=== PATIENT | male | born 1965 | race Two or more races ===

== ENCOUNTER 2020-11-05 10:37 | Emergency (ER) | payer MEDICARE, MEDICAID, SELFPAY ==
--- NOTE | 2020-11-05 | ECG_ITS ---
Test Reason : CHEST PAIN Blood Pressure : / mmHG Vent. Rate : 071 BPM Atrial Rate : 071 BPM P-R Int : 136 ms QRS Dur : 082 ms QT Int : 368 ms P-R-T Axes : 009 032 057 degrees QTc Int : 399 ms Normal sinus rhythm Normal ECG When compared with ECG of 10-SEP-2015 13:24, ST less elevated in Inferior leads ST no longer depressed in Lateral leads Referred By: Generic ED Physician Electronically Signed By:KIMBERLY BARILLAS MD
[2020-11-05 10:43] VITALS: BP 172/95; PULSE 90; RESP 19; TEMP 36.6; O2SAT 99; BMI 25.8
--- NOTE | 2020-11-05 11:10 | ED_ITS ---
HPI - Chest Pain General Chief Complaint: Chest Pain Stated Complaint: chest pain Time Seen by Provider: 11/05/20 11:10 Source: patient Mode of arrival: ambulatory Limitations: no limitations History of Present Illness HPI narrative: chest pain 45 minutes, feels like his prior NM complaint: chest pain Pertinent past history: coronary artery disease Onset (ago): minute(s) Timing of current episode: constant Pain location: substernal Pain radiation: left arm Severity: moderate Quality: tightness and heaviness Exacerbating factors: nothing Risk Factors Coronary artery disease risk factors: hyperlipidemia, hypertension and family hi story of CAD before age 50 Related Data Allergies Allergy/AdvReac Type Severity Reaction Status Date / Time No Known Allergies Allergy Unverified 05/29/20 15:36 [No Known Allergies*] Review of Systems Constitutional: Constitutional: Reports no additional constitutional complaints Eyes: Eyes: Reports no additional eye complaints ENT: Denies dizziness Cardiovascular: Cardiovascular: Reports no additional cardiovascular complaints Respiratory: Respiratory: Reports as per HPI Gastrointestinal: Gastrointestinal: Reports no additional gastrointestinal complaints Musculoskeletal: Musculoskeletal: Reports no additional musculoskeletal complaints Integumentary/Breasts: Skin/Breast: Denies rash Neurologic: Reports system reviewed and no additional complaints, except as documented, Denies dizziness and Denies Sensory deficit (Neuro) Psychiatric: Psychiatric: Denies anxiety PMFSH Past Medical History Medical History Arthritis HTN (hypertension) Myocardial infarction Surgical History H/O heart artery stent Social History Social History Alcohol intake: never Smoking Status: Never smoker Use of substances other than those prescribed or required for medical reasons: No Physical Exam Vital Signs: Vital Signs: Last Vital Signs Temp 98 F 11/05/20 10:43 Pulse 76 11/05/20 11:21 Resp 17 11/05/20 11:21 BP 166/105 H 11/05/20 11:21 Pulse Ox 100 11/05/20 11:21 Body Mass Index 25.8 Const: General: healthy appearing Nutritional Appearance: average body habitus Orientation/consciousness: oriented to person and patient oriented x3 Limitations: no limitations HENMT: Head: Yes normal to inspection Ears: external ears normal General nose exam: Normal external nose present Mouth: Normal oral and palatal mucosa present and oropharynx normal Throat: Yes posterior oropharynx normal Eyes: General: appearance normal, both eyes and all related structures Neck: Other: supple Neck: Yes normal visual inspection Chest: Chest palpation & inspection: normal inspection of the chest Resp: Auscultation: clear to auscultation bilaterally Cardio: Jugular venous distension: no JVD Rate: regular rate Rhythm: regular rhythm Heart sounds: S1 normal heart sound present and S2 normal heart sound present GI: Inspection: Yes normal to inspection Palpation (GI): Soft to palpation, nontender and No hepatosplenomegaly present Auscultation: normal bowel sounds : General: Yes no CVA tenderness Back/Spine/Pelvis: Back: no CVA tenderness Skin: General skin exam: no rashes or lesions noted Neuro: General: oriented to person and patient oriented x3 Cranial nerves: Yes CN's II-XII intact bilaterally Motor exam (neuro): 5/5 motor strength present throughout Sensory Exam: No Sensory deficit (Neuro) Extrem: General: Yes normal to inspection Psych: Appearance: grossly normal Course Course Course Narrative: accepted by Dr. Aquino [facility] - Chest Pain Differential Diagnosis Differential diagnosis: Likely st elevation myocardial infarction and chest pain Lab Data Result diagrams: 11/05/20 11:20 11/05/20 11:20 Labs: Lab Results 11/05/20 Range/Units 11:20 WBC 5.5 (4.8-10.8) X10*3/uL RBC 5.85 H (4.60-5.80) X10*6/uL Hgb 16.8 (14.0-18.0) g/dl Hct 51.9 (42-52) % MCV 88.7 (80-98) fL MCH 28.7 (27.0-33.0) pg MCHC 32.4 (31.0-36.0) g/dl RDW 12.8 (11.0-16.0) % Plt Count 157 L (160-400) X10*3/uL MPV 11.7 (9.4-12.4) fL Immature Gran % (Auto) 0.2 (0.0-0.4) % Neut % (Auto) 58.6 (45-73) % Lymph % (Auto) 31.1 (20-40) % Cass % (Auto) 6.6 (2-11) % Eos % (Auto) 3.3 (0-4) % Baso % (Auto) 0.2 (0-2) % Lymph # (Auto) 1.7 (1.2-4.9) X10*3/uL Cass # (Auto) 0.4 (0.1-1.2) X10*3/uL Eos # (Auto) 0.2 (0.0-0.4) X10*3/uL Baso # (Auto) 0.0 (0.0-0.2) X10*3/uL Abs Immat Gran (auto) 0.01 (0.00-0.03) X10*3/uL Absolute Neuts (auto) 3.2 (2.0-8.3) X10*3/uL Absolute Nucleated RBC 0.000 (0.0-0.012) X10*3/uL Nucleated RBC % (auto) 0.0 (0.0-0.2) /100WBC Critical Care Time Critical Care Time Attestation: I spent 30 minutes of critical care, with interventions, assessments, speaking to patient, consultants, and family. Discharge Plan Discharge Clinical Impression: Acute NM inferior lateral first episode care Patient Disposition: Xfer Acute [facility] Transfer Details: acute NM
[2020-11-05 11:17] VITALS: PULSE 83
--- NOTE | 2020-11-05 11:17 | ECG_ITS ---
Test Reason : REPEAT Blood Pressure : / mmHG Vent. Rate : 070 BPM Atrial Rate : 070 BPM P-R Int : 136 ms QRS Dur : 082 ms QT Int : 358 ms P-R-T Axes : 044 036 061 degrees QTc Int : 386 ms Normal sinus rhythm Inferior infarct , possibly acute ACUTE DE / STEMI Consider right ventricular involvement in acute inferior infarct Abnormal ECG When compared with ECG of 05-NOV-2020 10:43, No significant change was found Referred By: Valentin Card Electronically Signed By:KIMBERLY BARILLAS MD
[2020-11-05 11:21] VITALS: BP 166/105; PULSE 76; RESP 17; O2SAT 100
[2020-11-05] MEDS: Aspirin Enteric Coated 325 MG TABLET.DR PO (11:24)
[2020-11-05 11:25] LABS: MANUAL DIFF FLAG NO
[2020-11-05 11:27] LABS: Basophils Percent Auto 0.2 % (0-2); Eosinophils Absolute Auto 0.2 X10*3/uL (0.0-0.4); Eosinophils Percent Auto 3.3 % (0-4); Hematocrit 51.9 % (42-52); Hemoglobin 16.8 g/dl (14.0-18.0); Imm Gran Abs Auto 0.01 X10*3/uL (0.00-0.03); Imm Gran Pct Auto 0.2 % (0.0-0.4); Lymphocytes Absolute Auto 1.7 X10*3/uL (1.2-4.9); Lymphocytes Percent Auto 31.1 % (20-40); Mean Corpuscular HGB Conc 32.4 g/dl (31.0-36.0); Mean Corpuscular Hemoglobin 28.7 pg (27.0-33.0); Mean Corpuscular Volume 88.7 fL (80-98); Mean Platelet Volume 11.7 fL (9.4-12.4); Monocytes Absolute Auto 0.4 X10*3/uL (0.1-1.2); Monocytes Percent Auto 6.6 % (2-11); Neutrophils Absolute Auto 3.2 X10*3/uL (2.0-8.3); Neutrophils Percent Auto 58.6 % (45-73); Platelet Count 157 X10*3/uL (160-400); Red Blood Count 5.85 X10*6/uL (4.60-5.80); Red Cell Distribution Width 12.8 % (11.0-16.0); White Blood Count 5.5 X10*3/uL (4.8-10.8)
[2020-11-05] MEDS: Ticagrelor 90 MG TABLET 180 MG PO (11:29)
[2020-11-05] MEDS: Heparin Sodium,Porcine 5,000 UNIT/ML VIAL 5000 UNIT IVPUSH (11:30)
--- NOTE | 2020-11-05 11:30 | PC.NURSE ---
report given to ems, pt aware of plan of care [place] [facility].
--- NOTE | 2020-11-05 11:35 | PC.NURSE ---
nurse to nurse given to dashawn ([phone]) [facility]
[2020-11-05 11:53] LABS: Anion Gap 12 (12-20); Blood Urea Nitrogen 18 mg/dL (9-16); Calcium 9.5 mg/dL (8.4-10.2); Carbon Dioxide 31 mmol/L (22-29); Chloride 104 mmol/L (96-108); Creatinine Clr Calc Pharmacy 70.7; Estimated Glomerular Filt Rate > 60; Glucose Random 146 mg/dL (60-115); Potassium 4.8 mmol/L (3.3-5.1); Sodium 142 mmol/L (135-145)
[2020-11-05 12:02] LABS: COVID-19 Test Negative (Negative); IDNOW Serial# 9DD0AD1C
[2020-11-05 12:14] LABS: Troponin-I High Sensitivity 43.7 ng/L (<3.5-35.0)
--- NOTE | 2020-11-05 12:32 | PC.NURSE ---
this rn [place] [facility] [place] [facility] ([phone]) spoke with varghese, results were given for tyler Tamez
== END 2020-11-05 11:30 | disposition short-term general hospital (02) ==
LOC: HO.ED 11:32
PROVIDERS: Emergency Provider Emergency Medicine
DX: I21.19 ST elevation (STEMI) myocardial infarction involving other coronary artery of inferior wall (principal); Z20.822 Contact with and (suspected) exposure to COVID-19; I10 Essential (primary) hypertension
CPT/HCPCS: 36415; 80048; 84484; 85025; 87635; 93005; 96372; 96374; 99285; 99291

== ENCOUNTER 2021-10-29 11:12 | Inpatient (IN) | payer MEDICARE, MEDICAID, SELFPAY ==
[2021-10-29] VITALS (7 sets, daily range): BP systolic 134–163; BP diastolic 73–104; PULSE 47–73; RESP 14–19; TEMP 36.4–36.7; O2SAT 97–99; BMI 25.3
--- NOTE | ~2021-10-29 | XR_ITS ---
EXAMINATION: XR CHEST CLINICAL INFORMATION: Chest pain COMPARISON: None TECHNIQUE: AP portable view of the chest was obtained. FINDINGS: No significant abnormality is noted involving the heart, lungs, mediastinum, bony thorax or soft tissues. XR/XR chest 1V IMPRESSION: No acute disease.
--- NOTE | 2021-10-29 11:14 | ECG_ITS ---
Test Reason : CHEST PAIN Blood Pressure : / mmHG Vent. Rate : 064 BPM Atrial Rate : 064 BPM P-R Int : 134 ms QRS Dur : 082 ms QT Int : 374 ms P-R-T Axes : 030 034 043 degrees QTc Int : 385 ms Normal sinus rhythm Normal ECG When compared with ECG of 05-NOV-2020 11:14, ST no longer elevated in Inferior leads Referred By: Generic ED Physician Electronically Signed By:KIMBERLY BARILLAS MD
--- NOTE | 2021-10-29 11:39 | ECG_ITS ---
Test Reason : chest pain Blood Pressure : / mmHG Vent. Rate : 063 BPM Atrial Rate : 063 BPM P-R Int : 128 ms QRS Dur : 086 ms QT Int : 372 ms P-R-T Axes : 047 024 016 degrees QTc Int : 380 ms Normal sinus rhythm Normal ECG When compared with ECG of 29-OCT-2021 11:12, No significant change was found Referred By: Reilly Goldsmith Electronically Signed By:KIMBERLY BARILLAS MD
[2021-10-29] MEDS: Aspirin 81 MG TAB.CHEW 324 MG PO (11:52)
[2021-10-29 12:05] LABS: MANUAL DIFF FLAG NO
[2021-10-29 12:07] LABS: Basophils Percent Auto 0.2 % (0-2); Eosinophils Absolute Auto 0.2 X10*3/uL (0.0-0.4); Eosinophils Percent Auto 2.7 % (0-4); Hemoglobin 15.2 g/dl (14.0-18.0); Imm Gran Abs Auto 0.03 X10*3/uL (0.00-0.03); Imm Gran Pct Auto 0.5 % (0.0-0.4); Lymphocytes Percent Auto 16.2 % (20-40); Mean Corpuscular Hemoglobin 28.9 pg (27.0-33.0); Mean Corpuscular Volume 87.5 fL (80.0-98.0); Mean Platelet Volume 11.5 fL (9.4-12.4); Monocytes Absolute Auto 0.4 X10*3/uL (0.1-1.2); Monocytes Percent Auto 6.1 % (2-11); Neutrophils Absolute Auto 4.8 x10*3/uL (2.0-8.3); Neutrophils Percent Auto 74.3 % (45-73); Platelet Count 158 X10*3/uL (160-400); Red Blood Count 5.26 X10*6/uL (4.60-5.80); Red Cell Distribution Width 12.9 % (11.0-16.0); White Blood Count 6.4 X10*3/uL (4.8-10.8)
--- NOTE | 2021-10-29 12:07 | ED.CHESTPAIN ---
HPI - Chest Pain General Chief Complaint: Chest Pain Stated Complaint: chest pain Time Seen by Provider: 10/29/21 11:19 Source: patient Mode of arrival: ambulatory Limitations: language barrier ( patient's 1st language is Tajik, he does speak Uzbek, paraprofessional interpreter was used) History of Present Illness HPI narrative: 55-year-old male who presents emergency department for evaluation of head, neck, left shoulder and chest pain. 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 He states that he was doing this work for approximately 45 minutes. At 11:00, he developed a pain behind his left posterior head which radiated to his left neck and left shoulder. He then developed left-sided chest pain. He states that the pain feels like a pressure-like pain. The pain was constant. The pain was 7/10 at its worst. He states that the pain feels like his heart attack pain. He denied lightheadedness, dizziness, diaphoresis, nausea or vomiting. The patient states he has had 2 myocardial infarctions in the past. His 1st heart attack was 2 years ago and His 2nd myocardial infarction was 1 year prior. He was presented to [facility] on 11/05/2020, he had an inferior wall TN , and hewas transferred to [facility] . He states he got a stent. He has not had chest pain since is last myocardial infarction MD complaint: chest pain Pertinent past history: coronary artery disease, prior TN ( 2 years prior, 1 year prior) and [employer] ( with stent) Onset (ago): hour(s) (1) Timing of current episode: constant Prior episodes: Yes Onset: during exertion Pain location: left chest ( anterior) Pain radiation: left arm and neck ( left) Severity: severe Pain scale (0-10): 7 Quality: tightness and heaviness ( pressure) Relieving factors: nothing Exacerbating factors: nothing Context: recent illness Associated symptoms: other ( weakness) Treatment prior to arrival: aspirin ( 81 mg) and other ( Tylenol) Risk Factors Coronary artery disease risk factors: hypertension ( previous TN x2) and cocaine use Thoracic aortic dissection risk factors: longstanding hypertension Related Data Home Medications Medication Instructions Recorded Confirmed aspirin 81 mg tablet,delayed 1 tab PO DAILY 10/29/21 release atorvastatin 80 mg tablet 1 tab PO DAILY 10/29/21 metoprolol succinate 25 mg 1 tab PO DAILY 10/29/21 tablet,extended release 24 hr ticagrelor 90 mg tablet (Brilinta) 1 tab PO BID 10/29/21 Allergies Allergy/AdvReac Type Severity Reaction Status Date / Time No Known Allergies Allergy Unverified 05/29/20 15:36 [No Known Allergies*] Review of Systems Review of Systems: Yes all other systems are reviewed and are negative [facility] Past Medical History [facility] Narrative: Past medical history: Myocardial infarction 2 years ago and 6 months prior, 6 months prior he was here in the emergency department had inferior wall TN with ST segment depression to 3 and half with hyperacute T-waves in the anterior lateral leads. Social history: He denies tobacco, alcohol and drug use. Medical History Arthritis HTN (hypertension) Myocardial infarction Surgical History H/O heart artery stent Social History Social History Alcohol intake: current Alcohol intake frequency: a few times a month Patient Tobacco Use Status: Never used Tobacco Use of substances other than those prescribed or required for medical reasons: No Advance Directives: No Advance Directives Information Provided: Yes Physical Exam Vital Signs: Vital Signs: Last Vital Signs Temp 98.1 F 10/29/21 15:02 Pulse 48 L 10/29/21 15:02 Resp 14 10/29/21 15:02 BP 134/73 10/29/21 15:02 Pulse Ox 99 10/29/21 15:02 BMI result Body Mass Index 25.3 Const: General: cooperative and no acute distress Orientation/consciousness: oriented to person and oriented to place Limitations: no limitations HENMT: Head: Yes normal to inspection, Yes normocephalic and Yes atraumatic Ears: external ears normal General nose exam: Normal external nose present Face and sinus: Yes normal facial exam Mouth: Normal oral and palatal mucosa present Throat: Yes posterior oropharynx normal Eyes: General: appearance normal, both eyes and all related structures Pupils: Equal, round and reactive pupils present Neck: Neck: Yes normal visual inspection, Yes no lymphadenopathy, Yes trachea midline and Yes supple Chest: Chest palpation & inspection: normal inspection of the chest and normal palpation of entire chest wall Resp: Effort & Inspection: normal respiratory effort and able to speak in complete sentences Auscultation: clear to auscultation bilaterally Cardio: Rate: regular rate Rhythm: regular rhythm Heart sounds: S1 normal heart sound present, S2 normal heart sound present and no murmurs GI: Inspection: Yes normal to inspection Palpation (GI): Soft to palpation, nontender and no guarding Auscultation: normal bowel sounds : General: Yes no CVA tenderness Back/Spine/Pelvis: Back: no CVA tenderness Skin: General skin exam: no rashes or lesions noted Neuro: General: oriented to person and oriented to place Cranial nerves: Yes CN's II-XII intact bilaterally and Yes Equal, round and reactive pupils present Cognition (Neuro): normal cognition Motor exam (neuro): 5/5 motor strength present throughout Extrem: General: Yes normal to inspection Psych: Appearance: grossly normal Speech and movement: Normal speech and movement present Affect: normal affect Attitude: cooperative Thought process: Normal thought process present Thought content: Normal thought content present Course Course Course Narrative: 55-year-old man with history of hypertension and myocardial infarction x2 with the last myocardial infarction on 11/05/2020 ( inferior wall TN seen here then sent to [facility] for cardiac catheterization and stenting) who presents emergency department evaluation chest pain, left-sided head and neck pain that started approximately 1 hour prior to coming to emergency department while 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 Patient states that his pain is similar to his myocardial infarction pain in the past. Initial EKG did reveal peaked T-waves V2 through V3, repeat EKG shows similar peaked T-waves, there was no ST segment elevation or depression. I did order a cardiac workup on the patient include CBC, CMP, PT/ INR, PTT, troponin and chest x-ray. Patient was ordered to get aspirin 324 mg orally. 1723: Laboratory evaluation: CBC was normal. PTT was normal. CMP revealed an elevated BUN of 22 and elevated glucose of 133. First troponin at 1158 was 15.2. Repeat troponin at 15:53 was 532. Repeat EKGs revealed no ST segment elevation or depression, last EKG done at 14:01 reveals sinus bradycardia with a rate of 47. The patient's presentation is consistent with an NSTEMI. I did discuss the patient's presentation and lab findings with the covering senior designer/art director, Dr. Melgar. he recommended admission for NSTEMI, treatment with aspirin, heparin atorvastatin and continuing the patient's Brilinta. Patient also takes metoprolol and that should be continued as well. I did discuss the patient's presentation with the covering hospitalist as well the patient will be admitted to the intermediate care unit for further management of his NSTEMI. MDM - Chest Pain Lab Data Result diagrams: 10/29/21 11:58 10/29/21 11:58 Labs: Lab Results 10/29/21 10/29/21 10/29/21 Range/Units 11:58 11:58 11:58 WBC 6.4 (4.8-10.8) X10*3/uL RBC 5.26 (4.60-5.80) X10*6/uL Hgb 15.2 (14.0-18.0) g/dl Hct 46.0 (42.0-52.0) % MCV 87.5 (80.0-98.0) fL MCH 28.9 (27.0-33.0) pg MCHC 33.0 (31.0-36.0) g/dl RDW 12.9 (11.0-16.0) % Plt Count 158 L (160-400) X10*3/uL MPV 11.5 (9.4-12.4) fL Immature Gran % (Auto) 0.5 H (0.0-0.4) % Neut % (Auto) 74.3 H (45-73) % Lymph % (Auto) 16.2 L (20-40) % Crane % (Auto) 6.1 (2-11) % Eos % (Auto) 2.7 (0-4) % Baso % (Auto) 0.2 (0-2) % Lymph # (Auto) 1.0 L (1.2-4.9) X10*3/uL Crane # (Auto) 0.4 (0.1-1.2) X10*3/uL Eos # (Auto) 0.2 (0.0-0.4) X10*3/uL Baso # (Auto) 0.0 (0.0-0.2) X10*3/uL Abs Immat Gran (auto) 0.03 (0.00-0.03) X10*3/uL Absolute Neuts (auto) 4.8 (2.0-8.3) x10*3/uL Absolute Nucleated RBC 0.000 (0.0-0.012) X10*3/uL Nucleated RBC % (auto) 0.0 (0.0-0.2) /100WBC APTT 36.5 (24.1-38.0) SEC Sodium 139 (135-145) mmol/L Potassium 4.5 (3.3-5.1) mmol/L Chloride 106 (96-108) mmol/L Carbon Dioxide 26 (22-29) mmol/L Anion Gap 12 (12-20) BUN 22 H (9-16) mg/dL Creatinine 1.00 (0.5-1.4) mg/dL Estim Creat Clear Calc 76.1 Estimated GFR > 60 Random Glucose 131 H (60-115) mg/dL Calcium 9.8 (8.4-10.2) mg/dL Total Bilirubin 0.6 (0.0-1.0) mg/dL AST 22 (5-37) U/L ALT 23 (0-40) U/L Alkaline Phosphatase 87 (39-117) U/L Troponin I High Sens (<3.5-35.0) ng/L Total Protein 7.1 (6.5-8.0) g/dL Albumin 4.1 (3.5-5.0) g/dL 10/29/21 10/29/21 Range/Units 11:58 15:53 WBC (4.8-10.8) X10*3/uL RBC (4.60-5.80) X10*6/uL Hgb (14.0-18.0) g/dl Hct (42.0-52.0) % MCV (80.0-98.0) fL MCH (27.0-33.0) pg MCHC (31.0-36.0) g/dl RDW (11.0-16.0) % Plt Count (160-400) X10*3/uL MPV (9.4-12.4) fL Immature Gran % (Auto) (0.0-0.4) % Neut % (Auto) (45-73) % Lymph % (Auto) (20-40) % Crane % (Auto) (2-11) % Eos % (Auto) (0-4) % Baso % (Auto) (0-2) % Lymph # (Auto) (1.2-4.9) X10*3/uL Crane # (Auto) (0.1-1.2) X10*3/uL Eos # (Auto) (0.0-0.4) X10*3/uL Baso # (Auto) (0.0-0.2) X10*3/uL Abs Immat Gran (auto) (0.00-0.03) X10*3/uL Absolute Neuts (auto) (2.0-8.3) x10*3/uL Absolute Nucleated RBC (0.0-0.012) X10*3/uL Nucleated RBC % (auto) (0.0-0.2) /100WBC APTT (24.1-38.0) SEC Sodium (135-145) mmol/L Potassium (3.3-5.1) mmol/L Chloride (96-108) mmol/L Carbon Dioxide (22-29) mmol/L Anion Gap (12-20) BUN (9-16) mg/dL Creatinine (0.5-1.4) mg/dL Estim Creat Clear Calc Estimated GFR Random Glucose (60-115) mg/dL Calcium (8.4-10.2) mg/dL Total Bilirubin (0.0-1.0) mg/dL AST (5-37) U/L ALT (0-40) U/L Alkaline Phosphatase (39-117) U/L Troponin I High Sens 15.2 532.2 H* D (<3.5-35.0) ng/L Total Protein (6.5-8.0) g/dL Albumin (3.5-5.0) g/dL ECG Data ECG #1: Attestation: I personally reviewed and interpreted this ECG as follows: Interpretation: EKG 1.: 11 12: Normal sinus rhythm rate of 64, normal AR interval, QRS duration QTC interval, Q-wave in lead 3, peaked T-waves V1, V2, V3 and V4, no ST segment elevation or depression, no PACs or PVCs, compared to EKG dated 11/05/2020 the peaked T-waves were present but the patient also had ST segment elevation in 2 3 and AVF consistent with an acute TN. EKG 2.: Sinus bradycardia with a rate of 47, normal AR interval QRS duration QTC interval, Q-wave present in lead 3, with an inverted T-wave in lead 3, peaked T-waves V2 through V4, no ST segment elevation, no ST segment depression, no PACs, no PVCs compared to EKG 1. , there is no significant change. Critical Care Time Critical Care Time Critical Care Time: Yes Total Critical Care Time: 45 Attestation: Critical Care: The patient was critically ill with a high probability of imminent or life threatening deterioration. I spent greater than 30 minutes of discontinuous time evaluating the patient,delivering critical care at the bedside, discussing and evaluating pertinent data with consultants. Critical care time does not include time spent performing separately billable procedures or teaching. Total time spent performing critical care was 45 minutes. Discharge Plan Discharge Patient Disposition: Admitted As Inpatient
[2021-10-29 12:16] LABS: Partial Thromboplastin Time 36.5 SEC (24.1-38.0)
[2021-10-29 12:24] LABS: Alanine Aminotransferase 23 U/L (0-40); Albumin Level 4.1 g/dL (3.5-5.0); Alkaline Phosphatase 87 U/L (39-117); Anion Gap 12 (12-20); Aspartate Amino Transferase 22 U/L (5-37); Bilirubin Total 0.6 mg/dL (0.0-1.0); Blood Urea Nitrogen 22 mg/dL (9-16); Calcium 9.8 mg/dL (8.4-10.2); Carbon Dioxide 26 mmol/L (22-29); Chloride 106 mmol/L (96-108); Creatinine Clr Calc Pharmacy 76.1; Estimated Glomerular Filt Rate > 60; Glucose Random 131 mg/dL (60-115); Potassium 4.5 mmol/L (3.3-5.1); Sodium 139 mmol/L (135-145); Total Protein 7.1 g/dL (6.5-8.0)
[2021-10-29 12:25] LABS: Troponin-I High Sensitivity 15.2 ng/L (<3.5-35.0)
--- NOTE | 2021-10-29 13:59 | ECG_ITS ---
Test Reason : cp Blood Pressure : / mmHG Vent. Rate : 047 BPM Atrial Rate : 047 BPM P-R Int : 146 ms QRS Dur : 088 ms QT Int : 424 ms P-R-T Axes : 028 018 -06 degrees QTc Int : 375 ms Sinus bradycardia Nonspecific T wave abnormality now evident in Inferior leads When compared with ECG of 29-OCT-2021 11:12, T wave inversion now evident in Inferior leads Referred By: Generic ED Physician Electronically Signed By:KIMBERLY BARILLAS MD
[2021-10-29 16:33] LABS: Troponin-I High Sensitivity 532.2 ng/L (<3.5-35.0)
--- NOTE | 2021-10-29 17:04 | ECG_ITS ---
Test Reason : bradycardia Blood Pressure : / mmHG Vent. Rate : 048 BPM Atrial Rate : 048 BPM P-R Int : 142 ms QRS Dur : 088 ms QT Int : 422 ms P-R-T Axes : 023 019 014 degrees QTc Int : 376 ms Sinus bradycardia Otherwise normal ECG When compared with ECG of 29-OCT-2021 14:01, Nonspecific T wave abnormality no longer evident in Inferior leads Referred By: Deon Serna Electronically Signed By:KIMBERLY BARILLAS MD
[2021-10-29] MEDS: Heparin Sodium,Porcine 5,000 UNIT/ML VIAL 4000 UNIT IVPUSH (17:47)
[2021-10-29] MEDS: Atorvastatin Calcium 80 MG TABLET PO (17:47)
--- NOTE | 2021-10-29 17:53 | P.HPHOSP_ITS ---
History of Present Illness Date of Service: 10/29/21 Chief Complaint: chest pressure This history was taken in Mexican from the patient. 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 This felt similar to his prior OR. Upon arrival in the ED, pain resolved. EKG showed peaked anterior T-waves but no ST elevation or depression. He was given aspirin and atorvastatin. Initial hs-Tn-I was 15.2; repeat was 532.2. He was started on heparin infusion. Review of Systems Review of Systems: Yes all other systems are reviewed and are negative [facility] Medical History Arthritis Coronary artery disease HTN (hypertension) Myocardial infarction Prediabetes Pertinent family history: no CAD or CVA Surgical History H/O heart artery stent Social History Alcohol intake: current Alcohol intake frequency: a few times a month Patient Tobacco Use Status: Never used Tobacco Use of substances other than those prescribed or required for medical reasons: No Advance Directives: No Advance Directives Information Provided: Yes Meds Allergies Allergy/AdvReac Type Severity Reaction Status Date / Time No Known Allergies Allergy Unverified 05/29/20 15:36 [No Known Allergies*] Active Medications: Current Medications Aspirin (Aspirin 81 Mg Tab.Chew) 81 mg PO DAILY [facility] Atorvastatin Calcium (Atorvastatin Calcium 80 Mg Tablet) 80 mg PO DAILY [facility] Heparin Sodium (Porcine) (Heparin Sodium,Porcine 5,000 Unit/Ml Vial) 2,900 unit 40 unit/kg (2900 unit) IVPUSH PROTOCOL BOLUS PRN; Protocol PRN Reason: 40 unit/kg - Heparin Protocol Heparin Sodium (Porcine) (Heparin Sodium,Porcine 5,000 Unit/Ml Vial) 5,900 unit 80 unit/kg (5900 unit) IVPUSH PROTOCOL BOLUS PRN; Protocol PRN Reason: 80 unit/kg - Heparin Protocol Heparin Sodium/Sodium Chloride () 25,000 unit in 250 mls @ 0 mls/hr IVCONT .Q0M [facility]; Protocol Metoprolol Tartrate (Metoprolol Tartrate 12.5 Mg Halftab) 12.5 mg PO BID [facility]; Protocol Pharmacy Consult (Consult Rx Perform Med Rec) 1 each MISCELLANE ONCE PRN PRN Reason: Consult order Ticagrelor (Ticagrelor 90 Mg Tablet) 90 mg PO BID [facility] Home Medications Medication Instructions Recorded Confirmed Last Taken Type aspirin 81 mg tablet,delayed 1 tab PO DAILY 10/29/21 10/29/21 10/29/21 History release atorvastatin 80 mg tablet 1 tab PO DAILY 10/29/21 10/29/21 10/29/21 History metoprolol succinate 25 mg 1 tab PO DAILY 10/29/21 10/29/21 10/29/21 History tablet,extended release 24 hr ticagrelor 90 mg tablet (Brilinta) 1 tab PO BID 10/29/21 10/29/21 10/29/21 History Physical Exam Vital Signs and Narrative: Vital Signs: Last Vital Signs Temp 98.1 F 10/29/21 15:02 Pulse 48 L 10/29/21 15:02 Resp 14 10/29/21 15:02 BP 134/73 10/29/21 15:02 Pulse Ox 99 10/29/21 15:02 BMI result Body Mass Index 25.3 Gen: in no acute distress HEENT: sclera anicteric, moist mucus membranes Neck: supple Lungs: clear to auscultation bilaterally Heart: regular, bradycardic, no murmurs Abd: soft, non-tender, non-distended Ext: no edema Skin: warm/well-perfused Neuro: alert and oriented x3, no focal findings Psych: appropriate affect Results Labs CBC and Chem 7: 10/29/21 11:58 10/29/21 11:58 Labs: Laboratory Results - last 24 hr 10/29/21 10/29/21 10/29/21 11:58 11:58 11:58 MCV 87.5 MCH 28.9 MCHC 33.0 RDW 12.9 Plt Count 158 L MPV 11.5 Immature Gran % (Auto) 0.5 H Neut % (Auto) 74.3 H Lymph % (Auto) 16.2 L [place] % (Auto) 6.1 Eos % (Auto) 2.7 Baso % (Auto) 0.2 Lymph # (Auto) 1.0 L [place] # (Auto) 0.4 Eos # (Auto) 0.2 Baso # (Auto) 0.0 Abs Immat Gran (auto) 0.03 Absolute Neuts (auto) 4.8 Absolute Nucleated RBC 0.000 Nucleated RBC % (auto) 0.0 APTT 36.5 Anion Gap 12 Estim Creat Clear Calc 76.1 Estimated GFR > 60 Random Glucose 131 H Calcium 9.8 Total Bilirubin 0.6 AST 22 ALT 23 Alkaline Phosphatase 87 Total Protein 7.1 Albumin 4.1 Impressions Chest X-Ray 10/29/21 12:34 IMPRESSION: No acute disease. Imaging Radiologist's Impressions: Impressions Chest X-Ray 10/29/21 12:34 IMPRESSION: No acute disease. Assessment and Plan (1) Acute non-ST elevation myocardial infarction (NSTEMI): Status: Acute Plan 55yo M with prediabetes and CAD s/p PCI x2 (NADIA to PDA in 2015 and NADIA to RPL 11/05/20) who is on DAPT with ASA + ticagrelor presenting with anginal chest pain with significant troponin leak concerning for NSTEMI. # NSTEMI - Admit to IMC - Give heparin infusion, continue DAPT, continue metoprolol [with caution given bradycardia], continue high-intensity statin - NTG + EKG prn chest pain - TTE + Cardiology consult ordered # prediabtes - Check A1c to see if he has progressed to overt DM # VTE ppx -Heparin # code - Full Quality Stroke Does the patient have a stroke diagnosis?: No VTE Prior VTE?: No VTE Risk Level:: Medical - moderate - high VTE Device Contraindication: N/A - Device Ordered VTE Drug Contraindication: N/A - Med Ordered
--- NOTE | 2021-10-29 17:53 | PHA.MEDREC ---
Pharmacy Consult ? Medication Reconciliation Pharmacy has completed the medication reconciliation. Completed med rec with help of car tester
[2021-10-29 17:54] LABS: INTERNATIONAL NORM RATIO 0.9 (0.9-1.1); Prothrombin Time 10.6 SEC (9.9-13.0)
[2021-10-29] MEDS: Heparin Sodium,Porcine/1/2NS 25,000 UNIT/250 ML IV.SOLN 8.82 UNIT IVCONT (18:01)
--- NOTE | 2021-10-29 19:15 | PC.NURSE ---
assumed care of pt. pt resting in stretcher with eyes close, denies complaints/pain. pt on monitor with hr 81. VS obtained. Heparin drip up and running w/o difficulty, site intact as per emar. pt awaiting for room assignment.
[2021-10-29 20:14] LABS: Hematocrit 44.5 % (42.0-52.0); Hemoglobin 14.7 g/dl (14.0-18.0); Mean Corpuscular Hemoglobin 28.8 pg (27.0-33.0); Mean Corpuscular Volume 87.3 fL (80.0-98.0); Mean Platelet Volume 11.8 fL (9.4-12.4); Platelet Count 157 X10*3/uL (160-400); Red Cell Distribution Width 12.9 % (11.0-16.0); White Blood Count 7.1 X10*3/uL (4.8-10.8)
[2021-10-29] MEDS: Ticagrelor 90 MG TABLET PO (20:24)
[2021-10-29] MEDS: Metoprolol Tartrate 12.5 MG HALFTAB PO (20:25)
--- NOTE | 2021-10-29 22:11 | PC.NURSE ---
pt resting in stretcher, on monitor and speaking in full sentences. VS obtained. pt awaiting for room assignment. pt denies any complaints at this time. pt ate 3/4 of dinner tray. will continue to monitor pt.
--- NOTE | 2021-10-29 22:32 | PC.NURSE ---
pt was c/o chest pain, requesting pain meds. After pulling pain med pt declined morphine and was witnessed wasted with KIMMIE Hummel. pt decided to wait for pain meds. pt remains alert, respirations easy, n/l. skin w/d. pt remains on monitor. pt has room assignment and attempting to call report at this time.
--- NOTE | 2021-10-29 22:38 | PC.NURSE ---
report to KIMMIE Aguilera. pt to floor on stretcher with monitor at this time. pt left ed in nad. HL flushes easily w/o resistence.
[2021-10-30 04:00] VITALS: BP 135/87; PULSE 67; RESP 17; TEMP 36.6; O2SAT 100
--- NOTE | 2021-10-30 05:00 | ECG_ITS ---
Test Reason : CHEST PAIN Blood Pressure : / mmHG Vent. Rate : 054 BPM Atrial Rate : 054 BPM P-R Int : 138 ms QRS Dur : 084 ms QT Int : 396 ms P-R-T Axes : 055 003 -05 degrees QTc Int : 375 ms Sinus bradycardia Possible Inferior infarct , age undetermined Abnormal ECG When compared with ECG of 29-OCT-2021 18:36, No significant change was found Referred By: Reilly Goldsmith Electronically Signed By:KIMBERLY BARILLAS MD
[2021-10-30 05:13] VITALS: BMI 25.3
[2021-10-30 07:11] LABS: Hematocrit 48.9 % (42.0-52.0); Hemoglobin 15.7 g/dl (14.0-18.0); Mean Corpuscular HGB Conc 32.1 g/dl (31.0-36.0); Mean Corpuscular Hemoglobin 28.4 pg (27.0-33.0); Mean Corpuscular Volume 88.4 fL (80.0-98.0); Mean Platelet Volume 11.4 fL (9.4-12.4); Platelet Count 152 X10*3/uL (160-400); Red Blood Count 5.53 X10*6/uL (4.60-5.80); Red Cell Distribution Width 13.2 % (11.0-16.0); White Blood Count 6.2 X10*3/uL (4.8-10.8)
[2021-10-30 07:16] LABS: Prothrombin Time 10.9 SEC (9.9-13.0)
[2021-10-30 07:18] LABS: PTT Heparin Drip 58.6 SEC (53-77.9)
[2021-10-30 07:22] LABS: Estimated Average Glucose 126 mg/dL
[2021-10-30 07:25] LABS: Cholesterol 162 mg/dL; HDL Cholesterol 41 mg/dL; LDL Cholesterol Calculated 91 mg/dl; Triglycerides 152 mg/dL
[2021-10-30 08:00] VITALS: BP 129/87; PULSE 59; RESP 18; TEMP 36.3; O2SAT 99
[2021-10-30 09:26] LABS: Troponin-I High Sensitivity 1391.1 ng/L (<3.5-35.0)
--- NOTE | 2021-10-30 09:30 | CA_ITS ---
Transthoracic Echocardiogram Patient (Last, First, Middle): Shiraz Bradley A Gender: Male Date of : 1965 Age: 55 Procedure Date: 10/30/2021 Procedure Type: Transthoracic Echocardiogram Location: [facility] [place] Height: 170.18 cm Weight: 73.03 kg BSA: 1.84 m2 Heart Rate: bpm BP: 135 / 87 mmHg Evp: MIRIAM Joseph MD: Reilly Goldsmith MD Varnish Filterer: Scottie Melgar MD Symptoms: NSTEMI Study Quality: Good ECG Rhythm: Sinus Conclusions: - Essentially normal study Findings Left Ventricle Normal left ventricular size, thickness, and systolic function. The visually estimated ejection fraction is between 55-60%. Spectral Doppler is indicative of an impaired relaxation filling pattern. E/E prime ratio is <8, consistent with normal filling pressures. Evidence suggests grade I (mild) diastolic dysfunction. Right Ventricle Normal right ventricular cavity size and systolic function. Atria The left atrium is normal in size. The atrial septum has a dumbell appearance. There is no evidence of interatrial shunt. The right atrium is normal in size. Aortic Valve There is mild thickening of the aortic valve. There is no aortic valve stenosis. There is no aortic valve regurgitation. Mitral Valve There is mild anterior and posterior mitral leaflet thickening. There is trace mitral valve regurgitation. There is no mitral valve stenosis. Pulmonic Valve The pulmonic valve was not well visualized. Tricuspid Valve Likely normal tricuspid valve structure and function. There is mild tricuspid valve regurgitation. The right ventricular systolic pressure is normal. The right ventricular systolic pressure is 18 mmHg. Normal right atrial pressure. There is no evidence of pulmonary hypertension. Great Vessels All visible segments of the aorta are normal in size. The pulmonary artery was not well visualized. Venous The inferior vena cava is normal in size and collapses greater than 50% with inspiration. Pericardium/Pleural There is no evidence of pericardial effusion. Prior Study Comparison No prior study available for comparison. Measurements 2D Linear Measurements IVSd: 0.90 0.6-0.9/0.6-1.0 cm LVIDd: 4.40 3.9-5.3/4.2-5.9 cm LVIDd Index: 2.39 2.4-3.2/2.2-3.1 cm/m2 LVIDs: 2.89 2.0-3.6 cm LVPWd: 0.99 0.7-1.1 cm Ao Root: 3.30 2.1-3.5 cm LA Diam: 3.30 2.7-3.8/3.0-4.0 cm LAIDs Index: 1.79 1.5-2.3 cm/m2 LV Mass: 170.34 67-162/88-224 g LV Mass Index: 92.58 43-95/49-115 g/m2 LVOT Diam: 2.00 3.0+(-)1.3 cm 2D Systolic Function EF 4C: 53.70 >55% EF 2C: 58.60 >55% EF BiP: 55.40 >55% Mitral Valve MV Pk E: 0.87 MV PK A: 0.72 MV Decel Time: 279.00 E/A: 1.20 E'Lateral: 10.20 E'Medial: 6.53 E/E' Med: 13.40 E/E' Lat: 8.60 PHT: 82.00 MVA PHT: 2.68 Decel [place]: 3.13 Aortic Valve AoV Pk Kwaku: 1.35 AoV Mn Kwaku: 0.95 AoV VTI: 0.24 AoV Pk Grad: 7.00 Aov Mn Grad: 4.00 HARVEY Cont.VTI: 2.33 LVOT LVOT Pk [place]: 0.93 LVOT Mn Kwaku: 0.56 LVOT VTI: 0.18 LVOT Pk Grad: 3.00 LVOT Mn Grad: 2.00 LVOT Diam: 2.00 LVOT Area: 3.14 Diastolic Function MV Pk E: 0.87 MV Pk A: 0.72 E/A: 1.20 E'Medial: 6.53 E/E' Med: 13.40 E' Laterial: 10.20 E/E' Lat: 8.60 Right Ventricle TAPSE (mm): 20.00 TVS' Kwaku: 12.50 Tricuspid Valve TR Pk Kwaku: 1.91 TR Pk Grad: 15.00 RA Press: 3.00 RVSP: 18.00 Great Vessels Aorta Ao Root-2D: 3.30 2.0-3.7 cm Ao Asc: 3.60 2.1-3.4 cm Ao Arch: 2.40 Updated in Other Vendor System with Status of Final Scottie Melgar MD electronically signed on 10/30/2021 3:24:57 PM with status of Final
--- NOTE | 2021-10-30 09:52 | P.CONCA_ITS ---
History of Present Illness History of Present Illness Date of Service: 10/30/21 Requesting physician: Alberto Hurley Chief complaint: Acute coronary syndrome Narrative: I was requested to see Shiraz in cardiology consultation today for acute coronary syndrome. He is a 55-year-old active man with prior history of CAD with multiple intervention with inferior STEMI last November very underwent drug-eluting stent placement to the RPL branch of the RCA. He also has coronary artery disease in the branch vessel in other territories including circumflex artery distally as well as the diagonal branch. Patient came in yesterday was in her routine state of health helping his are out at home developed headache and subsequently radiating down to the shoulder and radiating to his chest pain. Symptoms of milder but similar to last year and therefore he decided right away to come to the emergency room. He did not have any sublingual nitroglycerin on him. When he came to the emergency room after treatment his symptoms subsided. His 1st troponin was 45 and subsequent troponin the 500 range. He was therefore admitted. EKG shows nonspecific changes in inferior lead. Patient was admitted for acute coronary syndrome. Has remained symptom-free. No recent exertional symptoms as per him. He has been taking all his medication and says that he has been taking aspirin Brilinta and the statins. He is currently not on any other antianginal medications Review of Systems Constitutional: Constitutional: Reports no additional constitutional complaints Eyes: Eyes: Reports no additional eye complaints Cardiovascular: Cardiovascular: Reports chest pain, Denies lightheadedness, Denies Loss of Consciousness, Denies palpitations and Denies dyspnea Respiratory: Respiratory: Reports no additional respiratory complaints and Denies dyspnea Gastrointestinal: Gastrointestinal: Reports no additional gastrointestinal complaints Genitourinary: Genitourinary: Reports no additional male genitourinary complaints Musculoskeletal: Musculoskeletal: Reports no additional musculoskeletal complaints Integumentary/Breasts: Skin/Breast: Reports system reviewed and no additional complaints, except as docu Neurologic: Reports system reviewed and no additional complaints, except as documented Psychiatric: Psychiatric: Reports no additional psychiatric complaints Endocrine: Endocrine: Reports no additional endocrine complaints and Denies palpitations Hematologic/Lymphatic: Hematologic/Lymphatic: Reports no additional hematologic/lymphatic complaints Allergic/Immunologic: Allergic/Immunologic: Reports no additional allergic/immunologic complaints PMFSH Past Medical History Medical History Arthritis Coronary artery disease HTN (hypertension) Myocardial infarction Prediabetes Surgical History Surgical History H/O heart artery stent Social History Social History Household Members: Spouse Housing: Apartment Do you presently have visiting nurse or other home services: No Alcohol intake: current Alcohol intake frequency: a few times a month Patient Tobacco Use Status: Never used Tobacco Second Hand Smoke Exposure: No Meds Allergies Allergy/AdvReac Type Severity Reaction Status Date / Time No Known Allergies Allergy Unverified 05/29/20 15:36 [No Known Allergies*] Active Medications: Current Medications Acetaminophen (Acetaminophen 325 Mg Tablet) 650 mg PO Q6H PRN PRN Reason: Pain, Mild (Pain Scale 1-3) Aspirin (Aspirin 81 Mg Tab.Chew) 81 mg PO DAILY [facility] Atorvastatin Calcium (Atorvastatin Calcium 80 Mg Tablet) 80 mg PO DAILY [facility] Heparin Sodium (Porcine) (Heparin Sodium,Porcine 5,000 Unit/Ml Vial) 2,900 unit 40 unit/kg (2900 unit) IVPUSH PROTOCOL BOLUS PRN; Protocol PRN Reason: 40 unit/kg - Heparin Protocol Heparin Sodium (Porcine) (Heparin Sodium,Porcine 5,000 Unit/Ml Vial) 5,900 unit 80 unit/kg (5900 unit) IVPUSH PROTOCOL BOLUS PRN; Protocol PRN Reason: 80 unit/kg - Heparin Protocol Heparin Sodium/Sodium Chloride () 25,000 unit in 250 mls @ 0 mls/hr IVCONT .Q0M [facility]; Protocol Last Titration: 10/30/21 07:42 Dose: 10 units/kg/hr, 7.35 mls/hr Documented by: Metoprolol Tartrate (Metoprolol Tartrate 12.5 Mg Halftab) 12.5 mg PO BID [facility]; Protocol Last Admin: 10/29/21 20:25 Dose: 12.5 mg Documented by: Morphine Sulfate (Morphine Sulfate 4 Mg/Ml Cartridge) 2 mg IVPUSH Q4H PRN; Protocol PRN Reason: Pain, Severe (Pain Scale 7-10) Nitroglycerin (Nitroglycerin 0.4 Mg Tab.Subl) 0.4 mg SUBLINGUAL Q5MX3 PRN PRN Reason: Chest Pain Pharmacy Consult (Consult Rx Perform Med Rec) 1 each MISCELLANE ONCE PRN PRN Reason: Consult order Sodium Chloride (0.9 % Sodium Chloride Flush 3 Ml Syringe) 3 ml IVFLUSH QSHIFT [facility] Last Admin: 10/29/21 23:36 Dose: Not Given Documented by: Ticagrelor (Ticagrelor 90 Mg Tablet) 90 mg PO BID [facility] Last Admin: 10/29/21 20:24 Dose: 90 mg Documented by: Home Medications Medication Instructions Recorded Confirmed Last Taken Type aspirin 81 mg tablet,delayed 1 tab PO DAILY 10/29/21 10/29/21 10/29/21 History release atorvastatin 80 mg tablet 1 tab PO DAILY 10/29/21 10/29/21 10/29/21 History metoprolol succinate 25 mg 1 tab PO DAILY 10/29/21 10/29/21 10/29/21 History tablet,extended release 24 hr ticagrelor 90 mg tablet (Brilinta) 1 tab PO BID 10/29/21 10/29/21 10/29/21 History Physical Exam Vital Signs: Vital Signs: Last Vital Signs Temp 97.3 F 10/30/21 08:00 Pulse 59 10/30/21 08:00 Resp 18 10/30/21 08:00 BP 129/87 10/30/21 08:00 Pulse Ox 99 10/30/21 08:00 BMI result Body Mass Index 25.3 Const: General: cooperative, comfortable, no acute distress, alert and awake Nutritional Appearance: average body habitus Orientation/consciousness: patient oriented x3 Limitations: no limitations HENMT: Head: Yes normocephalic and Yes atraumatic Neck: Neck: Yes trachea midline, Yes supple and Yes no JVD Chest: Chest palpation & inspection: normal inspection of the chest Resp: Effort & Inspection: normal respiratory effort Auscultation: clear to auscultation bilaterally Cardio: Jugular venous distension: no JVD Palpation: normal PMI Rate: regular rate Rhythm: regular rhythm Heart sounds: S1 normal heart sound present, S2 normal heart sound present, no click, no gallops and no murmurs GI: Auscultation: normal bowel sounds Skin: General skin exam: no rashes or lesions noted Neuro: General: patient oriented x3 and no focal motor deficits Extrem: General: Yes no clubbing, cyanosis or edema Psych: Appearance: grossly normal Objective Labs and Meds Result diagrams: 10/30/21 06:50 10/29/21 11:58 Lab results: Laboratory Results - last 24 hr 10/29/21 10/29/21 10/29/21 11:58 11:58 11:58 WBC 6.4 RBC 5.26 Hgb 15.2 Hct 46.0 MCV 87.5 MCH 28.9 MCHC 33.0 RDW 12.9 Plt Count 158 L MPV 11.5 Immature Gran % (Auto) 0.5 H Neut % (Auto) 74.3 H Lymph % (Auto) 16.2 L [place] % (Auto) 6.1 Eos % (Auto) 2.7 Baso % (Auto) 0.2 Lymph # (Auto) 1.0 L [place] # (Auto) 0.4 Eos # (Auto) 0.2 Baso # (Auto) 0.0 Abs Immat Gran (auto) 0.03 Absolute Neuts (auto) 4.8 Absolute Nucleated RBC 0.000 Nucleated RBC % (auto) 0.0 PT 10.6 INR 0.9 APTT 36.5 aPTT Heparin Protocol Sodium 139 Potassium 4.5 Chloride 106 Carbon Dioxide 26 Anion Gap 12 BUN 22 H Creatinine 1.00 Estim Creat Clear Calc 76.1 Estimated GFR > 60 Random Glucose 131 H Estimat Average Glucose Hemoglobin A1c % Calcium 9.8 Total Bilirubin 0.6 AST 22 ALT 23 Alkaline Phosphatase 87 Troponin I High Sens Total Protein 7.1 Albumin 4.1 Triglycerides Cholesterol LDL Cholesterol, Calc HDL Cholesterol 10/29/21 10/29/21 10/29/21 11:58 15:53 19:37 WBC 7.1 RBC 5.10 Hgb 14.7 Hct 44.5 MCV 87.3 MCH 28.8 MCHC 33.0 RDW 12.9 Plt Count 157 L MPV 11.8 Immature Gran % (Auto) Neut % (Auto) Lymph % (Auto) Keith % (Auto) Eos % (Auto) Baso % (Auto) Lymph # (Auto) Keith # (Auto) Eos # (Auto) Baso # (Auto) Abs Immat Gran (auto) Absolute Neuts (auto) Absolute Nucleated RBC 0.000 Nucleated RBC % (auto) 0.0 PT INR APTT aPTT Heparin Protocol Sodium Potassium Chloride Carbon Dioxide Anion Gap BUN Creatinine Estim Creat Clear Calc Estimated GFR Random Glucose Estimat Average Glucose Hemoglobin A1c % Calcium Total Bilirubin AST ALT Alkaline Phosphatase Troponin I High Sens 15.2 532.2 H* D Total Protein Albumin Triglycerides Cholesterol LDL Cholesterol, Calc HDL Cholesterol 10/30/21 10/30/21 10/30/21 00:09 06:50 06:50 WBC 6.2 RBC 5.53 Hgb 15.7 Hct 48.9 MCV 88.4 MCH 28.4 MCHC 32.1 RDW 13.2 Plt Count 152 L MPV 11.4 Immature Gran % (Auto) Neut % (Auto) Lymph % (Auto) Keith % (Auto) Eos % (Auto) Baso % (Auto) Lymph # (Auto) Keith # (Auto) Eos # (Auto) Baso # (Auto) Abs Immat Gran (auto) Absolute Neuts (auto) Absolute Nucleated RBC 0.000 Nucleated RBC % (auto) 0.0 PT 10.9 INR 1.0 APTT aPTT Heparin Protocol 84.0 H Sodium Potassium Chloride Carbon Dioxide Anion Gap BUN Creatinine Estim Creat Clear Calc Estimated GFR Random Glucose Estimat Average Glucose Hemoglobin A1c % Calcium Total Bilirubin AST ALT Alkaline Phosphatase Troponin I High Sens Total Protein Albumin Triglycerides Cholesterol LDL Cholesterol, Calc HDL Cholesterol 10/30/21 10/30/21 10/30/21 06:50 06:50 06:50 WBC RBC Hgb Hct MCV MCH MCHC RDW Plt Count MPV Immature Gran % (Auto) Neut % (Auto) Lymph % (Auto) Keith % (Auto) Eos % (Auto) Baso % (Auto) Lymph # (Auto) Keith # (Auto) Eos # (Auto) Baso # (Auto) Abs Immat Gran (auto) Absolute Neuts (auto) Absolute Nucleated RBC Nucleated RBC % (auto) PT INR APTT aPTT Heparin Protocol 58.6 D Sodium Potassium Chloride Carbon Dioxide Anion Gap BUN Creatinine Estim Creat Clear Calc Estimated GFR Random Glucose Estimat Average Glucose 126 Hemoglobin A1c % 6.0 Calcium Total Bilirubin AST ALT Alkaline Phosphatase Troponin I High Sens Total Protein Albumin Triglycerides 152 Cholesterol 162 LDL Cholesterol, Calc 91 HDL Cholesterol 41 10/30/21 08:32 WBC RBC Hgb Hct MCV MCH MCHC RDW Plt Count MPV Immature Gran % (Auto) Neut % (Auto) Lymph % (Auto) Keith % (Auto) Eos % (Auto) Baso % (Auto) Lymph # (Auto) Keith # (Auto) Eos # (Auto) Baso # (Auto) Abs Immat Gran (auto) Absolute Neuts (auto) Absolute Nucleated RBC Nucleated RBC % (auto) PT INR APTT aPTT Heparin Protocol Sodium Potassium Chloride Carbon Dioxide Anion Gap BUN Creatinine Estim Creat Clear Calc Estimated GFR Random Glucose Estimat Average Glucose Hemoglobin A1c % Calcium Total Bilirubin AST ALT Alkaline Phosphatase Troponin I High Sens 1391.1 H* D Total Protein Albumin Triglycerides Cholesterol LDL Cholesterol, Calc HDL Cholesterol Imaging Radiologist's impression: Impressions Chest X-Ray 10/29/21 12:34 IMPRESSION: No acute disease. Assessment and Plan (1) Acute coronary syndrome: Status: Acute Acute coronary syndrome middle-aged man with prior coronary artery disease. SMILEY risk score of at leat 4. He is currently symptom-free. Advised to be transferred to [facility] today for cardiac catheterization, hopefully can be done today. Continue IV heparin drip. Continue dual antiplatelet therapy. Continue high-intensity statin therapy and metoprolol. Patient was advised that this is the best approach of treatment and he agrees to be transferred to [facility]. We discussed about risks, benefits, alternatives 2nd opinion procedure. 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 Procedures Date of Service Date of Service: 10/30/21
[2021-10-30] MEDS: Aspirin 81 MG TAB.CHEW PO (10:04)
[2021-10-30 10:05] VITALS: PULSE 70
[2021-10-30] MEDS: Metoprolol Tartrate 12.5 MG HALFTAB PO (10:05)
[2021-10-30] MEDS: 0.9 % Sodium Chloride Flush 3 ML SYRINGE IVFLUSH (10:05)
[2021-10-30] MEDS: Ticagrelor 90 MG TABLET PO (10:05)
[2021-10-30] MEDS: Atorvastatin Calcium 80 MG TABLET PO (10:05)
--- NOTE | 2021-10-30 11:11 | PM.DS ---
DS: Providers Provider Date of Service: 10/30/21 Date of admission: 10/29/21 17:51 Date of discharge: 10/30/21 Primary care physician: [facility] Consults: 10/29/21 17:28 Consult to Cardiology Routine Consulting Provider: Scottie Melgar Reason for consultation: NSTEMI DS: Diagnosis Discharge Diagnosis (1) Acute coronary syndrome: Status: Acute (2) Acute non-ST elevation myocardial infarction (NSTEMI): Status: Acute (3) Prediabetes: Status: Acute DS: Summary Hospital Course Hospital Course: From my admission history and physical, 10/29/21: 55yo M with prediabetes and CAD s/p PCI x2 (NADIA to PDA in 2015 and NADIA to RPL 11/05/20) who is on DAPT with ASA + ticagrelor 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 This felt similar to his prior MT.? Upon arrival in the ED, pain resolved.? EKG showed peaked anterior T-waves but no ST elevation or depression.? He was given aspirin and atorvastatin.? Initial hs-Tn-I was 15.2; repeat was 532.2.? He was started on heparin infusion. The patient was admitted to the [facility] on a heparin drip. EKG showed nonspecific inferior wall changes. He had no recurrence of chest pain. Repeat hs-Tn-I was 1391.1. Cardiology was consulted. He was transferred to [facility] for cardiac catheterization. Time Spent with Patient Time attestation: Total time spent providing and/or coordinating discharge services: Discharge coordination time: Greater than 30 minutes Quality: Stroke Does the patient have a stroke diagnosis?: No Physical Exam Vital Signs: Vital Signs: Last Vital Signs Temp 97.3 F 10/30/21 08:00 Pulse 70 10/30/21 10:05 Resp 18 10/30/21 08:00 BP 129/87 10/30/21 08:00 Pulse Ox 99 10/30/21 08:00 BMI result Body Mass Index 25.3 Gen: in no acute distress HEENT: sclera anicteric, moist mucus membranes Neck: supple Lungs: clear to auscultation bilaterally Heart: regular rate and rhythm, no murmurs Abd: soft, non-tender, non-distended Ext: no edema Skin: warm/well-perfused Neuro: alert and oriented x3, no focal findings Psych: appropriate affect DS: Data Data Completed and Pending Labs on day of discharge: ITS Impressions Chest X-Ray 10/29/21 12:34 IMPRESSION: No acute disease. Laboratory Tests 10/29/21 10/29/21 10/29/21 11:58 11:58 11:58 WBC 6.4 RBC 5.26 Hgb 15.2 Hct 46.0 MCV 87.5 MCH 28.9 MCHC 33.0 RDW 12.9 Plt Count 158 L MPV 11.5 Immature Gran % (Auto) 0.5 H Neut % (Auto) 74.3 H Lymph % (Auto) 16.2 L Bollinger % (Auto) 6.1 Eos % (Auto) 2.7 Baso % (Auto) 0.2 Lymph # (Auto) 1.0 L Bollinger # (Auto) 0.4 Eos # (Auto) 0.2 Baso # (Auto) 0.0 Abs Immat Gran (auto) 0.03 Absolute Neuts (auto) 4.8 Absolute Nucleated RBC 0.000 Nucleated RBC % (auto) 0.0 PT 10.6 INR 0.9 APTT 36.5 aPTT Heparin Protocol Sodium 139 Potassium 4.5 Chloride 106 Carbon Dioxide 26 Anion Gap 12 BUN 22 H Creatinine 1.00 Estim Creat Clear Calc 76.1 Estimated GFR > 60 Random Glucose 131 H Estimat Average Glucose Hemoglobin A1c % Calcium 9.8 Total Bilirubin 0.6 AST 22 ALT 23 Alkaline Phosphatase 87 Troponin I High Sens Total Protein 7.1 Albumin 4.1 Triglycerides Cholesterol LDL Cholesterol, Calc HDL Cholesterol 10/29/21 10/29/21 10/29/21 11:58 15:53 19:37 WBC 7.1 RBC 5.10 Hgb 14.7 Hct 44.5 MCV 87.3 MCH 28.8 MCHC 33.0 RDW 12.9 Plt Count 157 L MPV 11.8 Immature Gran % (Auto) Neut % (Auto) Lymph % (Auto) Bollinger % (Auto) Eos % (Auto) Baso % (Auto) Lymph # (Auto) Bollinger # (Auto) Eos # (Auto) Baso # (Auto) Abs Immat Gran (auto) Absolute Neuts (auto) Absolute Nucleated RBC 0.000 Nucleated RBC % (auto) 0.0 PT INR APTT aPTT Heparin Protocol Sodium Potassium Chloride Carbon Dioxide Anion Gap BUN Creatinine Estim Creat Clear Calc Estimated GFR Random Glucose Estimat Average Glucose Hemoglobin A1c % Calcium Total Bilirubin AST ALT Alkaline Phosphatase Troponin I High Sens 15.2 532.2 H* D Total Protein Albumin Triglycerides Cholesterol LDL Cholesterol, Calc HDL Cholesterol 10/30/21 10/30/21 10/30/21 00:09 06:50 06:50 WBC 6.2 RBC 5.53 Hgb 15.7 Hct 48.9 MCV 88.4 MCH 28.4 MCHC 32.1 RDW 13.2 Plt Count 152 L MPV 11.4 Immature Gran % (Auto) Neut % (Auto) Lymph % (Auto) Bollinger % (Auto) Eos % (Auto) Baso % (Auto) Lymph # (Auto) Bollinger # (Auto) Eos # (Auto) Baso # (Auto) Abs Immat Gran (auto) Absolute Neuts (auto) Absolute Nucleated RBC 0.000 Nucleated RBC % (auto) 0.0 PT 10.9 INR 1.0 APTT aPTT Heparin Protocol 84.0 H Sodium Potassium Chloride Carbon Dioxide Anion Gap BUN Creatinine Estim Creat Clear Calc Estimated GFR Random Glucose Estimat Average Glucose Hemoglobin A1c % Calcium Total Bilirubin AST ALT Alkaline Phosphatase Troponin I High Sens Total Protein Albumin Triglycerides Cholesterol LDL Cholesterol, Calc HDL Cholesterol 10/30/21 10/30/21 10/30/21 06:50 06:50 06:50 WBC RBC Hgb Hct MCV MCH MCHC RDW Plt Count MPV Immature Gran % (Auto) Neut % (Auto) Lymph % (Auto) Bollinger % (Auto) Eos % (Auto) Baso % (Auto) Lymph # (Auto) Bollinger # (Auto) Eos # (Auto) Baso # (Auto) Abs Immat Gran (auto) Absolute Neuts (auto) Absolute Nucleated RBC Nucleated RBC % (auto) PT INR APTT aPTT Heparin Protocol 58.6 D Sodium Potassium Chloride Carbon Dioxide Anion Gap BUN Creatinine Estim Creat Clear Calc Estimated GFR Random Glucose Estimat Average Glucose 126 Hemoglobin A1c % 6.0 Calcium Total Bilirubin AST ALT Alkaline Phosphatase Troponin I High Sens Total Protein Albumin Triglycerides 152 Cholesterol 162 LDL Cholesterol, Calc 91 HDL Cholesterol 41 10/30/21 08:32 WBC RBC Hgb Hct MCV MCH MCHC RDW Plt Count MPV Immature Gran % (Auto) Neut % (Auto) Lymph % (Auto) Bollinger % (Auto) Eos % (Auto) Baso % (Auto) Lymph # (Auto) Bollinger # (Auto) Eos # (Auto) Baso # (Auto) Abs Immat Gran (auto) Absolute Neuts (auto) Absolute Nucleated RBC Nucleated RBC % (auto) PT INR APTT aPTT Heparin Protocol Sodium Potassium Chloride Carbon Dioxide Anion Gap BUN Creatinine Estim Creat Clear Calc Estimated GFR Random Glucose Estimat Average Glucose Hemoglobin A1c % Calcium Total Bilirubin AST ALT Alkaline Phosphatase Troponin I High Sens 1391.1 H* D Total Protein Albumin Triglycerides Cholesterol LDL Cholesterol, Calc HDL Cholesterol Discharge Plan Discharge Patient Disposition: Xfer Acute Care Hospital Discharge Diagnosis: nSTEMI Referrals: Sp Agrawal MD [Physician] - 1 Week Center[facility] [Primary Care Provider] - 1 Week Discharge Medications: New nitroglycerin [Nitrostat] 0.4 mg Tablet, Sublingual 0.4 mg sublingual Q5MX3 PRN (Reason: Chest Pain) Qty: 1 0RF heparin (porcine) 5,000 unit/mL Solution 2,900 unit IVPUSH PROTOCOL BOLUS PRN (Reason: 40 Unit/Kg - Heparin Protocol) Qty: 1 0RF heparin (porcine) 5,000 unit/mL Solution 5,900 unit IVPUSH PROTOCOL BOLUS PRN (Reason: 80 Unit/Kg - Heparin Protocol) Qty: 1 0RF heparin(porcine) in 0.45% NaCl 25,000 unit/250 mL Parenteral Solution 25,000 unit continuous IV infusion .Q0M Qty: 1 0RF metoprolol tartrate 25 mg tablet 12.5 mg PO BID Qty: 1 0RF morphine 4 mg/mL Syringe 2 mg IVPUSH Q4H PRN (Reason: Pain, Severe (Pain Scale 7-10)) Qty: 1 0RF Protocol: Hold for RR < HOLD and contact provider for RR < (bpm): 12 Continued atorvastatin 80 mg tablet 1 tab PO DAILY 0RF aspirin 81 mg tablet,delayed release (DR/EC) 1 tab PO DAILY 0RF Brilinta 90 mg tablet 1 tab PO BID 0RF Discontinued metoprolol succinate 25 mg tablet extended release 24 hr 1 tab PO DAILY 0RF Discharge Orders: Discharge Order (Routine); Ordered 02/18/22 Ordered By: Reilly Goldsmith Diet: diabetic diet Activity on Discharge: As tolerated Stand Alone Forms: Patient Portal Discharge page Care Plan Goals: heart health Health Concerns: nSTEMI Plan of Treatment: transfer to [facility] for cardiac catheterization Assessment: see Discharge Summary Patient Instructions: Heart Catheterization (DC)
[2021-10-30 11:26] VITALS: BP 111/72; PULSE 54; RESP 12; TEMP 36.7; O2SAT 100
--- NOTE | 2021-10-30 11:32 | MHC.CM.PN ---
IMM 10/30/21 Male 55 DX NSTEMI He lives with his . He is independent all functional mobility. DP transfer to [facility] [place] Cardiac Cath via BLS
== END 2021-10-30 13:11 | disposition short-term general hospital (02) | DRG 282 ==
LOC: HO.ED 17:32 → HO.EDOVER 17:56 → HO.IMC 18:31
PROVIDERS: Admitting Provider Family Medicine; Emergency Provider Emergency Medicine Emergency Medical Services; PCP Internal Medicine Geriatric Medicine; Visit Provider Family Medicine
DX: I21.4 Non-ST elevation (NSTEMI) myocardial infarction (principal); I25.10 Atherosclerotic heart disease of native coronary artery without angina pectoris; R73.03 Prediabetes; I25.2 Old myocardial infarction; Z98.61 Coronary angioplasty status; Z79.82 Long term (current) use of aspirin; Z79.899 Other long term (current) drug therapy
CPT/HCPCS: 36415; 71045; 80053; 80061; 83036; 84484; 85025; 85027; 85610; 85730; 93005; 93306; 96365; 96375; 99285; 99291; J2270

== ENCOUNTER 2023-06-03 13:21 | Emergency (ER) | payer MEDICARE, MEDICAID, SELFPAY ==
--- NOTE | ~2023-06-03 | XR_ITS ---
EXAMINATION: XR WRIST-HAND, RIGHT CLINICAL INFORMATION: Pain COMPARISON: None available. TECHNIQUE: Right hand and wrist, 3 views Also, a navicular view of the wrist is obtained. FINDINGS: There is a small subarticular cyst of the ulna at level of the ulnolunate joint. There appears to be minimal marginal osteophyte formation at the radiocarpal joint. The radiocarpal joint space is maintained. Also, midcarpal and carpometacarpal joint spaces are well-preserved. No acute fracture or subluxation. No evidence of chondrocalcinosis at the wrist. There appears to be mild soft tissue swelling of the wrist. However, clinical correlation advised. No radiopaque foreign body or soft tissue gas. Bones of the hand have normal density and alignment. No bare area erosions or periostitis. The metacarpophalangeal and proximal interphalangeal joint spaces are normal. Osteophytes and mild joint space narrowing at index finger DIP joint. Otherwise, DIP joints are unremarkable. XR/XR hand wrist RT IMPRESSION: * No acute osseous injury in the right hand or wrist. No fracture or subluxation. * There are very small osteophytes of the radiocarpal joint as well as likely degenerative subchondral cyst of the ulna at the ulnolunate joint. 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 * There appears to be mild soft tissue swelling at the wrist.
[2023-06-03 13:41] VITALS: BP 126/81; PULSE 60; RESP 18; TEMP 36.7; O2SAT 99; BMI 25.4
--- NOTE | 2023-06-03 13:41 | ED_ITS ---
HPI - General Adult General Chief complaint: Extremity Problem Stated complaint: R Arm Swelling No Injury Time Seen by Provider: 06/03/23 17:17 Source: patient Mode of arrival: ambulatory Limitations: no limitations History of Present Illness HPI narrative: Patient is a 57-year-old male with history of arthritis, CAD, acute MA presenting to the emergency department with complaint of 16 days of right wrist pain. He denies any fall or other trauma. States that he has been using ibuprofen with little relief. 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 Denies any numbness or tingling to his hand or fingers. Denies any decreased strength or decreased range of motion to his fingers. Denies any recent fevers, redness, warmth. MD complaint: Right wrist pain Onset (ago): week(s) Location: right and upper extremity Radiation: non-radiation Severity: severe Quality: burning and aching Pain Consistency: constant Relieving factors: rest Exacerbating factors: movement Associated symptoms: denies other symptoms Treatments prior to arrival: NSAID Related Data Home Medications Medication Instructions Recorded Confirmed aspirin 81 mg tablet,delayed 1 tab PO DAILY 10/29/21 10/29/21 release atorvastatin 80 mg tablet 1 tab PO DAILY 10/29/21 10/29/21 ticagrelor 90 mg tablet (Brilinta) 1 tab PO BID 10/29/21 10/29/21 Previous Rx's Medication Instructions Recorded heparin (porcine) 25,000 unit/250 25,000 unit (250 mL) continuous IV 10/30/21 mL in 0.45 % sodium chloride IV infusion .Q0M #1 mL soln heparin (porcine) 5,000 unit/mL 2,900 unit (0.58 mL) IVPUSH 10/30/21 injection solution PROTOCOL BOLUS PRN 40 Unit/Kg - Heparin Protocol #1 mL heparin (porcine) 5,000 unit/mL 5,900 unit (1.18 mL) IVPUSH 10/30/21 injection solution PROTOCOL BOLUS PRN 80 Unit/Kg - Heparin Protocol #1 mL metoprolol tartrate 25 mg tablet 12.5 mg (1/2 x 25 mg) PO BID #1 tab 10/30/21 morphine 4 mg/mL intravenous 2 mg IVPUSH Q4H PRN Pain, Severe 10/30/21 syringe (Pain Scale 7-10) #1 mL nitroglycerin 0.4 mg sublingual 0.4 mg sublingual Q5MX3 PRN Chest 10/30/21 tablet (Nitrostat) Pain #1 tab lidocaine 5 % topical patch 1 patch topical DAILY #15 ea 06/03/23 Allergies Allergy/AdvReac Type Severity Reaction Status Date / Time No Known Allergies Allergy Unverified 05/29/20 15:36 [No Known Allergies*] Review of Systems Review of Systems: As per HPI. Yes all other systems are reviewed and are negative Constitutional: Constitutional: Reports as per HPI [facility] Past Medical History Medical History Arthritis Coronary artery disease HTN (hypertension) Myocardial infarction Prediabetes Surgical History H/O heart artery stent Social History Social History Household Members: Spouse Housing: Apartment Do you presently have visiting nurse or other home services: No Alcohol intake: current Alcohol intake frequency: a few times a month Patient Tobacco Use Status: Never used Tobacco Second Hand Smoke Exposure: No Advance Directives: Yes Advance Directives on File: Yes Advance Directives Date on File: 10/29/21 service: No Current occupational status: disabled Physical Exam ED Vital Signs: Vital Signs - 24 hr 06/03/23 13:41 Temperature 98.1 F Pulse Rate 60 Respiratory Rate 18 Blood Pressure 126/81 Pulse Oximetry 99 Oxygen Delivery Method Room Air BMI result Body Mass Index 25.4 Vital signs have been reviewed and appear to be correct. Blood pressure normal. Heart rate normal. Respiratory rate normal. Temperature normal. Oxygen saturation normal. Const General: cooperative, healthy appearing and no acute distress Orientation/consciousness: oriented to person, oriented to place, oriented to time and patient oriented x3 Limitations: no limitations HENMT Head: Yes normocephalic and Yes atraumatic Ears: external ears normal General nose exam: Normal external nose present Face and sinus: Yes face symmetric Mouth: oropharynx normal and moist mucous membranes Throat: Yes uvula midline Eyes Pupils: Equal, round and reactive pupils present Neck Neck: Yes normal visual inspection and Yes supple Resp Effort & Inspection: normal respiratory effort and able to speak in complete sentences Auscultation: clear to auscultation bilaterally Cardio Rate: regular rate Rhythm: regular rhythm Heart sounds: S1 normal heart sound present and S2 normal heart sound present GI Palpation (GI): Soft to palpation and nontender Auscultation: normoactive bowel sounds General: Yes no CVA tenderness Back/Spine/Pelvis Back: no CVA tenderness Skin General skin exam: elasticity normal and turgor normal Neuro General: oriented to person, oriented to place, oriented to time, patient oriented x3, tone normal, moves all extremities, Normal light touch and pain sensation, no focal motor deficits, CN's II-XI intact bilaterally and deep t endon reflexes 2+ bilaterally Cranial nerves: Yes Equal, round and reactive pupils present Cognition (Neuro): normal cognition Motor exam (neuro): 5/5 motor strength present throughout Extrem General: Yes full ROM, Yes no pedal edema and Yes no calf tenderness Right upper extremity: wrist Details: tenderness Location: of the distal radius and of the dorsal wrist, swelling Location: of the dorsal wrist (mild) and normal ROM; no unusual warmth and Extremity exam: right hand Details: normal to inspection, normal capillary refill, neuromotor exam normal, neurosensory exam normal and normal ROM of fingers Psych Mental Status: mental status grossly normal Affect: normal affect Thought process: Normal thought process present Course Course Course Narrative: This is an RME: Additional HPI, ROS, PE not included below will be deferred to primary provider. 57-year-old male presents with atraumatic right wrist pain, patient reports he has a history of arthritis and thinks that maybe his arthritis, reports he has not been able to sleep due to pain. Does not think he has hit it against anything. Denies numbness, tingling, fevers and chills. Plan x-ray of right wrist. Medical Decision Making Medical Decision Making MDM Narrative: Patient is a 57-year-old male with history of arthritis, CAD, acute MA presenting to the emergency department with complaint of 16 days of right wrist pain. On exam patient is awake, A+Ox3, VS WNL, afebrile, normal neurological exam without focal deficits, physical exam findings as above. Given reported symptoms and physical exam findings, initial differential includes fracture, subluxation, muscle strain, nerve inflammation, arthritis. X-ray notable for a no acute fracture subluxation, degenerative changes and mild soft tissue swelling. My interpretation is in agreement with the radiologist's interpretation. Low suspicion for/unlikely septic arthritis or osteomyelitis. Discharge patient home with lidocaine patches on a, advised to continue with Tylenol, discussed patient that he should not use NSAIDs if taking Brilinta. Discussed with patient that a wrist brace or Troy wrap may provide support while he is at work. Instructed patient to ice his wrist throughout the day. Instructed patient to follow-up with primary care provider. Return precautions discussed at bedside. Patient verbalized understanding of and agreement with plan. Differential Diagnosis Differential Diagnoses: The differential diagnosis associated with the presentation includes As per MDM. Independent Interpretation I performed an independent interpretation of an: Plain X-Ray Interpretation: No acute injury to right hand/wrist, degenerative changes Radiology Impression Discussion of test interpretation with radiology: I have reviewed the radiologist's reading. Radiologist Impression: XR/XR hand wrist RT IMPRESSION: * No acute osseous injury in the right hand or wrist. No fracture or subluxation. * There are very small osteophytes of the radiocarpal joint as well as likely degenerative subchondral cyst of the ulna at the ulnolunate joint. 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 * There appears to be mild soft tissue swelling at the wrist. External Record Review External record reviewed: Inpatient record, Office record and Outpatient record Prescription Management I considered prescription management with: Pain Medication Discharge Plan Discharge Clinical Impression: Pain in right wrist Patient Disposition: Home, Self-Care Instructions: R.I.C.E. Treatment (ED), Arm Pain (ED), Arthritis (ED) Additional Instructions: You have been evaluated in the emergency department today for right wrist pain. Your evaluation did not find evidence of medical conditions requiring emergent intervention at this time. Your x-ray shows changes consistent with arthritis. Please rest, ice, and elevate your wrist while home, and resume normal activities as tolerated. You are being prescribed topical lidocaine patches which she can wear for up to 12 hours in a 24 hour period. Do not apply heat directly over the patches. You can also take 650 mg of Tylenol every 6 hours in addition to the lidocaine patches as needed for pain control. An [id number] wrist brace may provide support an pain relief while you are at work. Please schedule an appointment for follow-up with your primary care provider this week. Return to the emergency department if you experience worsening pain, numbness, tingling, change of color in your hand, fever 100.4? F or greater, or any other concerning symptoms. Prescriptions: New lidocaine 5 % adhesive patch,medicated 1 patch topical DAILY Qty: 15 0RF Rx Instructions: leave on most painful area for up to 12 hrs No Action atorvastatin 80 mg tablet 1 tab PO DAILY aspirin 81 mg tablet,delayed release (DR/EC) 1 tab PO DAILY Brilinta 90 mg tablet 1 tab PO BID nitroglycerin [Nitrostat] 0.4 mg Tablet, Sublingual 0.4 mg sublingual Q5MX3 PRN (Reason: Chest Pain) Qty: 1 0RF heparin (porcine) 5,000 unit/mL Solution 2,900 unit IVPUSH PROTOCOL BOLUS PRN (Reason: 40 Unit/Kg - Heparin Protocol) Qty: 1 0RF heparin (porcine) 5,000 unit/mL Solution 5,900 unit IVPUSH PROTOCOL BOLUS PRN (Reason: 80 Unit/Kg - Heparin Protocol) Qty: 1 0RF heparin(porcine) in 0.45% NaCl 25,000 unit/250 mL Parenteral Solution 25,000 unit continuous IV infusion .Q0M Qty: 1 0RF metoprolol tartrate 25 mg tablet 12.5 mg PO BID Qty: 1 0RF morphine 4 mg/mL Syringe 2 mg IVPUSH Q4H PRN (Reason: Pain, Severe (Pain Scale 7-10)) Qty: 1 0RF Protocol: Hold for RR < HOLD and contact provider for RR < (bpm): 12
== END 2023-06-03 18:50 | disposition home or self-care (01) ==
PROVIDERS: Emergency Provider Emergency Medicine
DX: M25.531 Pain in right wrist (principal); I25.10 Atherosclerotic heart disease of native coronary artery without angina pectoris; M79.10 Myalgia, unspecified site; Z79.899 Other long term (current) drug therapy
CPT/HCPCS: 73110; 73130; 99282; 99283

== ENCOUNTER 2023-09-17 11:56 | Inpatient (IN) | payer MEDICARE, MEDICAID, SELFPAY ==
[2023-09-17 12:47] VITALS: BP 131/80; PULSE 68; RESP 18; TEMP 37; O2SAT 99; BMI 24.8
--- NOTE | 2023-09-17 12:47 | ED.CHESTPAIN ---
HPI - Chest Pain General Chief Complaint: Chest Pain Stated Complaint: Chest pain Time Seen by Provider: 09/17/23 16:05 Source: patient, RN notes reviewed, old records reviewed and grill attendant Mode of arrival: ambulatory Limitations: language barrier History of Present Illness HPI narrative: 57-year-old male with past medical history significant for coronary artery disease status post stenting x3 presents for evaluation of chest pain patient reports that his pain started about 3 days ago and has been on and off he states that he went to another facility yesterday had EKG and blood work was discharged home his pain returned earlier today while at rest. This is what prompted his visit to the ER again today. His pain lasted about 30 minutes before resolving patient reports he sees Cardiology on [facility] but is unsure of his doctor's name he reports he took a baby aspirin, 81 mg this morning he states that he is no longer taking Brilinta but he has been on in the past he has no other complaints or concerns at this time denies any shortness of breath or palpitations Related Data Home Medications Medication Instructions Recorded Confirmed aspirin 81 mg tablet,delayed 1 tab PO DAILY 10/29/21 10/29/21 release atorvastatin 80 mg tablet 1 tab PO DAILY 10/29/21 10/29/21 ticagrelor 90 mg tablet (Brilinta) 1 tab PO BID 10/29/21 10/29/21 Previous Rx's Medication Instructions Recorded heparin (porcine) 25,000 unit/250 25,000 unit (250 mL) continuous IV 10/30/21 mL in 0.45 % sodium chloride IV infusion .Q0M #1 mL soln heparin (porcine) 5,000 unit/mL 2,900 unit (0.58 mL) IVPUSH 10/30/21 injection solution PROTOCOL BOLUS PRN 40 Unit/Kg - Heparin Protocol #1 mL heparin (porcine) 5,000 unit/mL 5,900 unit (1.18 mL) IVPUSH 10/30/21 injection solution PROTOCOL BOLUS PRN 80 Unit/Kg - Heparin Protocol #1 mL metoprolol tartrate 25 mg tablet 12.5 mg (1/2 x 25 mg) PO BID #1 tab 10/30/21 morphine 4 mg/mL intravenous 2 mg IVPUSH Q4H PRN Pain, Severe 10/30/21 syringe (Pain Scale 7-10) #1 mL nitroglycerin 0.4 mg sublingual 0.4 mg sublingual Q5MX3 PRN Chest 10/30/21 tablet (Nitrostat) Pain #1 tab lidocaine 5 % topical patch 1 patch topical DAILY #15 ea 06/03/23 Allergies Allergy/AdvReac Type Severity Reaction Status Date / Time No Known Allergies Allergy Verified 09/17/23 12:47 [No Known Allergies*] Review of Systems Constitutional: Constitutional: Denies chills, Denies fever(s) and Reports malaise Cardiovascular: Cardiovascular: Reports chest pain, Reports chest pain at rest, Reports chest pain with activity, Denies leg edema, Reports radiating jaw, neck or arm pain and Denies dyspnea Respiratory: Respiratory: Denies cough and Denies dyspnea Musculoskeletal: Musculoskeletal: Denies back pain PMFSH Past Medical History Onset Date is defined in the Problem List Problems that require an onset date and time if occurred within 24 hrs of arrival to the ED Aortic Dissection and Rupture; Neurologic impairment; Cardiopulmonary Arrest; Endotracheal Intubation; Insertion or Replacement of Mechanical Circulatory Assist Device Medical History Arthritis Coronary artery disease HTN (hypertension) Myocardial infarction Prediabetes Surgical History H/O heart artery stent Social History Social History Household Members: Spouse Housing: Apartment Do you presently have visiting nurse or other home services: No Alcohol intake: current Alcohol intake frequency: a few times a month Patient Tobacco Use Status: Never used Tobacco Smoked in Last 30 Days: No Second Hand Smoke Exposure: No Use of substances other than those prescribed or required for medical reasons: No Advance Directives: Yes Advance Directives on File: Yes Advance Directives Date on File: 10/29/21 service: No Current occupational status: disabled Physical Exam Vital Signs: Vital Signs: Last Vital Signs Temp 98.6 F 09/17/23 16:07 Pulse 56 09/17/23 16:07 Resp 18 09/17/23 16:07 BP 111/77 09/17/23 16:07 Pulse Ox 100 09/17/23 16:07 O2 Del Method Room Air 09/17/23 16:07 BMI result Body Mass Index 24.8 Const: General: healthy appearing, comfortable, no acute distress, alert and awake Nutritional Appearance: well nourished Orientation/consciousness: patient oriented x3 HEENT: Head: Yes normocephalic and Yes atraumatic Eyes: Eyelids: Yes eyelids normal Conjunctivae: conjunctivae normal Sclerae: sclerae normal Corneas: corneas normal EOM: EOMs intact bilaterally Resp: Effort & Inspection: normal respiratory effort, able to speak in complete sentences and not labored Cardio: Other: no leg swelling Skin: General skin exam: elasticity normal Neuro: General: patient oriented x3 Cranial nerves: Yes Bilaterally intact EOM present Cognition (Neuro): normal cognition Course Course Course Narrative: This is a rapid medical exam. Deferred additional HPI, ROS, PE to primary provider. 57 yo male with history of CAD with 3 stents here with chest pain x 1 hr with radiating to left neck. Will need labs, EKG, CXR. VSS Medications Administered Discontinued Medications Generic Name Dose Route Start Last Admin Trade Name Freq PRN Reason Stop Dose Admin Aspirin 243 mg 09/17/23 16:27 09/17/23 16:31 Aspirin 81 Mg Tab.Chew PO 09/17/23 16:28 243 mg ONCE ONE Administration Medical Decision Making Medical Decision Making MDM Narrative: 57-year-old male with past medical history significant for coronary artery disease status post stenting x3 presents for evaluation of chest pain. At the time of my evaluation he is chest pain-free. However he has already had a troponin and repeat troponin. The troponin was 62.4 and a repeat troponin was 449.8. At this time a repeat EKG which did not show any significant change, the patient remains chest pain-free. I a added on additional aspirin to give a total daily dose of 324 mg. I spoke with Cardiology, Dr. Castillo who agrees with admission to the medical service and starting heparin. Differential Diagnosis Differential Diagnoses: The differential diagnosis associated with the presentation includes chest pain ACS NSTEMI elevated troponin Admission/Observation Consideration of admission/observation: Escalation of care including admission/observation considered patient will be admitted to the medical service for ACS Consult Healthcare Provider Management of the patient was discussed with: Lubrication Supervisor (Dr Castillo who agrees with heparinization) Lab Data MDM Lab Attestation statement: I reviewed the patient's lab results. no leukocytosis or anemia. No significant electrolyte abnormalities. Patient's glucose is elevated to 190 without evidence of DKA. Troponin of 62.4 and a repeat troponin 3 hours later of 449.8. 09/17/23 12:58 09/17/23 12:58 Labs: Lab Results 09/17/23 Range/Units 12:58 WBC 5.5 (4.8-10.8) X10*3/uL RBC 5.39 (4.60-5.80) X10*6/uL Hgb 15.4 (14.0-18.0) g/dl Hct 47.5 (42.0-52.0) % MCV 88.1 (80.0-98.0) fL MCH 28.6 (27.0-33.0) pg MCHC 32.4 (31.0-36.0) g/dl RDW 13.0 (11.0-16.0) % Plt Count 161 (160-400) X10*3/uL MPV 11.6 (9.4-12.4) fL Immature Gran % (Auto) 0.2 (0.0-0.4) % Neut % (Auto) 67.2 (45-73) % Lymph % (Auto) 22.4 (20-40) % [place] % (Auto) 5.8 (2-11) % Eos % (Auto) 4.0 (0-4) % Baso % (Auto) 0.4 (0-2) % Lymph # (Auto) 1.2 (1.2-4.9) X10*3/uL [place] # (Auto) 0.3 (0.1-1.2) X10*3/uL Eos # (Auto) 0.2 (0.0-0.4) X10*3/uL Baso # (Auto) 0.0 (0.0-0.2) X10*3/uL Abs Immat Gran (auto) 0.01 (0.00-0.03) X10*3/uL Absolute Neuts (auto) 3.7 (2.0-8.3) x10*3/uL Absolute Nucleated RBC 0.000 (0.0-0.012) X10*3/uL Nucleated RBC % (auto) 0.0 (0.0-0.2) /100WBC PT 9.7 L (11.1-13.3) SEC INR 0.8 L (0.9-1.1) Sodium 139 (135-145) mmol/L Potassium 4.9 (3.3-5.1) mmol/L Chloride 102 (96-108) mmol/L Carbon Dioxide 29 (22-29) mmol/L Anion Gap 13 (12-20) BUN 28 H (9-16) mg/dL Creatinine 1.34 (0.5-1.4) mg/dL Estim Creat Clear Calc 55.4 Estimated GFR 55 Random Glucose 190 H (60-115) mg/dL Calcium 10.2 (8.4-10.2) mg/dL Magnesium 1.9 (1.6-2.6) mg/dL Total Bilirubin 0.5 (0.0-1.0) mg/dL Direct Bilirubin 0.1 (0.0-0.5) mg/dL AST 26 (5-37) U/L ALT 32 (0-40) U/L Alkaline Phosphatase 106 (39-117) U/L Troponin I High Sens 62.4 H (<3.5-35.0) ng/L Total Protein 8.3 H (6.5-8.0) g/dL Albumin 4.6 (3.5-5.0) g/dL Independent Interpretation I performed an independent interpretation of an: EKG ( Normal sinus rhythm with rate of 71 beats per minute. No ST segment elevation or depressions. There are T-wave inversions in lead 3.) Interpretation: Repeat EKG At 4:22 p.m.shows no significant change, however the rate is decreased to 59 beats per minute. External Record Review External record reviewed: Inpatient record, Office record and Prior outpatient labs Critical Care Time Critical Care Time Critical Care Time: Yes Total Critical Care Time: 35 Attestation: a 57-year-old male with his significant cardiac medical history presents for evaluation of chest pain with elevated troponin. Patient will be admitted for heparinization Discharge Plan Discharge Clinical Impression: Acute coronary syndrome Patient Disposition: Admitted As Inpatient Prescriptions: No Action atorvastatin 80 mg tablet 1 tab PO DAILY aspirin 81 mg tablet,delayed release (DR/EC) 1 tab PO DAILY Brilinta 90 mg tablet 1 tab PO BID nitroglycerin [Nitrostat] 0.4 mg Tablet, Sublingual 0.4 mg sublingual Q5MX3 PRN (Reason: Chest Pain) Qty: 1 0RF heparin (porcine) 5,000 unit/mL Solution 2,900 unit IVPUSH PROTOCOL BOLUS PRN (Reason: 40 Unit/Kg - Heparin Protocol) Qty: 1 0RF heparin (porcine) 5,000 unit/mL Solution 5,900 unit IVPUSH PROTOCOL BOLUS PRN (Reason: 80 Unit/Kg - Heparin Protocol) Qty: 1 0RF heparin(porcine) in 0.45% NaCl 25,000 unit/250 mL Parenteral Solution 25,000 unit continuous IV infusion .Q0M Qty: 1 0RF metoprolol tartrate 25 mg tablet 12.5 mg PO BID Qty: 1 0RF morphine 4 mg/mL Syringe 2 mg IVPUSH Q4H PRN (Reason: Pain, Severe (Pain Scale 7-10)) Qty: 1 0RF Protocol: Hold for RR < HOLD and contact provider for RR < (bpm): 12 lidocaine 5 % adhesive patch,medicated 1 patch topical DAILY Qty: 15 0RF Rx Instructions: leave on most painful area for up to 12 hrs
[2023-09-17 13:03] LABS: MANUAL DIFF FLAG NO
[2023-09-17 13:05] LABS: Basophils Percent Auto 0.4 % (0-2); Eosinophils Absolute Auto 0.2 X10*3/uL (0.0-0.4); Hematocrit 47.5 % (42.0-52.0); Hemoglobin 15.4 g/dl (14.0-18.0); Imm Gran Abs Auto 0.01 X10*3/uL (0.00-0.03); Imm Gran Pct Auto 0.2 % (0.0-0.4); Lymphocytes Absolute Auto 1.2 X10*3/uL (1.2-4.9); Lymphocytes Percent Auto 22.4 % (20-40); Mean Corpuscular HGB Conc 32.4 g/dl (31.0-36.0); Mean Corpuscular Hemoglobin 28.6 pg (27.0-33.0); Mean Corpuscular Volume 88.1 fL (80.0-98.0); Mean Platelet Volume 11.6 fL (9.4-12.4); Monocytes Absolute Auto 0.3 X10*3/uL (0.1-1.2); Monocytes Percent Auto 5.8 % (2-11); Neutrophils Absolute Auto 3.7 x10*3/uL (2.0-8.3); Neutrophils Percent Auto 67.2 % (45-73); Platelet Count 161 X10*3/uL (160-400); Red Blood Count 5.39 X10*6/uL (4.60-5.80); White Blood Count 5.5 X10*3/uL (4.8-10.8)
[2023-09-17 13:12] LABS: INTERNATIONAL NORM RATIO 0.8 (0.9-1.1); Prothrombin Time 9.7 SEC (11.1-13.3)
[2023-09-17 13:21] LABS: Alanine Aminotransferase 32 U/L (0-40); Albumin Level 4.6 g/dL (3.5-5.0); Alkaline Phosphatase 106 U/L (39-117); Anion Gap 13 (12-20); Aspartate Amino Transferase 26 U/L (5-37); Bilirubin Direct 0.1 mg/dL (0.0-0.5); Bilirubin Total 0.5 mg/dL (0.0-1.0); Blood Urea Nitrogen 28 mg/dL (9-16); Calcium 10.2 mg/dL (8.4-10.2); Carbon Dioxide 29 mmol/L (22-29); Chloride 102 mmol/L (96-108); Creatinine Clr Calc Pharmacy 55.4; Estimated Glomerular Filt Rate 55; Glucose Random 190 mg/dL (60-115); Magnesium 1.9 mg/dL (1.6-2.6); Potassium 4.9 mmol/L (3.3-5.1); Sodium 139 mmol/L (135-145); Total Protein 8.3 g/dL (6.5-8.0)
[2023-09-17 13:28] LABS: Troponin-I High Sensitivity 62.4 ng/L (<3.5-35.0)
[2023-09-17 16:07] VITALS: BP 111/77; PULSE 56; RESP 18; TEMP 37; O2SAT 100
--- NOTE | 2023-09-17 17:08 | PHA.MEDREC ---
Pharmacy Consult ? Medication Reconciliation Pharmacy has completed the medication reconciliation. spoke with patient to confirm medications.
--- NOTE | 2023-09-17 17:45 | PM.IMHP ---
History of Present Illness Date of Service: 09/17/23 Chief Complaint: Chest pain 57-year-old gentleman with past medical history significant for coronary artery disease status post stenting x3 presented to [facility] due to symptoms of chest pain that started last Tuesday he was driving car he developed left-sided chest pain , with no associated symptoms of shortness of breath, no diaphoresis, no lightheadedness or dizziness, he got out of car symptoms resolved within half an hour without any intervention , he had 2 other similar episodes of chest pain that lasted less than 1/2 hour associated with left ear discomfort like muffled sound in ears, but no other symptoms , yesterday he went to [facility] emergency room underwent extensive workup and was told everything is negative and was discharged home , this morning patient noted to have similar episode of left ear discomfort followed by left-sided localized chest pain, with no associated shortness of breath, no diaphoresis, no fevers, no chills, patient was not doing any activity, pain again resolved without any intervention, patient follows by a group manager on [facility] he does not recall the name he was recently taken off Brilinta he is compliant with home medications that include aspirin, metoprolol, lisinopril and Lipitor, he does not check his blood sugars on a regular basis, he denies history of smoking, in ED workup showed initial troponin of 62.4, and repeat troponin was 449.8 EKG did not show acute ischemic changes patient was treated in ED with aspirin and IV heparin and now being admitted to [facility] with a diagnosis of a acute coronary syndrome. Review of Systems Review of Systems: General no headache,no dizziness, no fever chills. CVS no chest pain, no palpitation. Respiratory no cough, no sob. Gastrointestinal no nausea no vomiting, no abdominal pain no urgency, no frequency Skin no rash All other system reviewed and negative [facility] Medical History Prediabetes Coronary artery disease HTN (hypertension) Arthritis Myocardial infarction Surgical History H/O heart artery stent Social History Household Members: Spouse Housing: Apartment Do you presently have visiting nurse or other home services: No Alcohol intake: current Alcohol intake frequency: a few times a month Patient Tobacco Use Status: Never used Tobacco Second Hand Smoke Exposure: No Advance Directives Date on File: 10/29/21 service: No Current occupational status: disabled Meds Allergies Allergy/AdvReac Type Severity Reaction Status Date / Time No Known Allergies Allergy Verified 09/17/23 12:47 [No Known Allergies*] Active Medications: Current Medications Acetaminophen (Acetaminophen 325 Mg Tablet) 650 mg PO Q6H PRN PRN Reason: Pain, Mild (Pain Scale 1-3) Aspirin (Aspirin Enteric Coated 81 Mg Tablet.Dr) 81 mg PO DAILY [facility] Atorvastatin Calcium (Atorvastatin Calcium 80 Mg Tablet) 80 mg PO DAILY [facility] Benzonatate (Benzonatate 100 Mg Capsule) 100 mg PO TID PRN PRN Reason: Cough Docusate Sodium (Docusate Sodium 100 Mg Capsule) 100 mg PO DAILY PRN PRN Reason: Constipation Heparin Sodium (Porcine) (Heparin Sodium,Porcine 5,000 Unit/Ml Vial) 2,900 unit 40 unit/kg (2900 unit) IVPUSH PROTOCOL BOLUS PRN; Protocol PRN Reason: 40 unit/kg - Heparin Protocol Heparin Sodium (Porcine) (Heparin Sodium,Porcine 5,000 Unit/Ml Vial) 5,700 unit 80 unit/kg (5700 unit) IVPUSH PROTOCOL BOLUS PRN; Protocol PRN Reason: 80 unit/kg - Heparin Protocol Heparin Sodium/Sodium Chloride (Heparin Sodium,Porcine/1/2ns) 25,000 unit in 250 mls @ 0 mls/hr IVCONT .Q0M [facility]; Protocol Lisinopril (Lisinopril 20 Mg Tablet) 20 mg PO DAILY [facility]; Protocol Magnesium Hydroxide (Milk Of Magnesia 30 Ml Oral.Susp) 30 ml PO DAILY PRN PRN Reason: Constipation Metoprolol Succinate (Metoprolol Succinate Er 25 Mg Tab.Er.24h) 25 mg PO DAILY [facility]; Protocol Ondansetron HCl (Ondansetron Hcl 4 Mg/2 Ml Vial) 4 mg IVPUSH Q8H PRN PRN Reason: Nausea and Vomiting Sodium Chloride (0.9 % Sodium Chloride Flush 3 Ml Syringe) 3 ml IVFLUSH QSHIFT [facility] Home Medications Medication Instructions Recorded Confirmed Last Taken Type aspirin 81 mg tablet,delayed 1 tab PO DAILY 10/29/21 09/17/23 09/17/23 History release atorvastatin 80 mg tablet 1 tab PO DAILY 10/29/21 09/17/23 09/17/23 History lisinopril 20 mg tablet 20 mg PO DAILY 09/17/23 09/17/23 09/17/23 History metoprolol succinate 25 mg 25 mg PO DAILY 09/17/23 09/17/23 09/17/23 History tablet,extended release 24 hr Physical Exam Vital Signs and Narrative: Vital Signs: Last Vital Signs Temp 98.6 F 09/17/23 16:07 Pulse 56 09/17/23 16:07 Resp 18 09/17/23 16:07 BP 111/77 09/17/23 16:07 Pulse Ox 100 09/17/23 16:07 O2 Del Method Room Air 09/17/23 16:07 BMI result Body Mass Index 24.8 Const: Other: General awake alert x3, in no acute distress. HEENT: Anicteric sclera Neck supple no JVD. CVS regular rate rhythm, Respiratory lungs clear to auscultation, no respiratory distress, no wheeze, no rhonchi. Gastrointestinal abdomen soft, nontender, bowel sounds audible, no guarding , no rigidity. Extremities no edema. Neuro nonfocal Skin no rash Psych appropriate affect Results Labs 09/17/23 12:58 09/17/23 12:58 Labs: Laboratory Results - last 24 hr 09/17/23 09/17/23 12:58 16:52 MCV 88.1 MCH 28.6 MCHC 32.4 RDW 13.0 Plt Count 161 MPV 11.6 Immature Gran % (Auto) 0.2 Neut % (Auto) 67.2 Lymph % (Auto) 22.4 Scott % (Auto) 5.8 Eos % (Auto) 4.0 Baso % (Auto) 0.4 Lymph # (Auto) 1.2 Scott # (Auto) 0.3 Eos # (Auto) 0.2 Baso # (Auto) 0.0 Abs Immat Gran (auto) 0.01 Absolute Neuts (auto) 3.7 Absolute Nucleated RBC 0.000 Nucleated RBC % (auto) 0.0 PT 9.7 L INR 0.8 L aPTT Heparin Protocol 33.0 L Anion Gap 13 Estim Creat Clear Calc 55.4 Estimated GFR 55 Random Glucose 190 H Calcium 10.2 Magnesium 1.9 Total Bilirubin 0.5 Direct Bilirubin 0.1 AST 26 ALT 32 Alkaline Phosphatase 106 Total Protein 8.3 H Albumin 4.6 Imaging Radiologist's Impressions: Impressions Chest X-Ray 09/17/23 13:25 IMPRESSION: Unremarkable examination. Assessment and Plan (1) Acute coronary syndrome: Status: Acute (2) Prediabetes: Status: Acute Plan 57-year-old gentleman with past medical history significant for pre diabetes and coronary artery disease status post 3 stent placement presented to [facility] with recurrent episodes of chest pain lasting less than 30 minutes, patient noted to have elevated troponin Acute coronary syndrome No chest pain at present, history of prior IWMI, and s/p 3 stent placement presented with recurrent episode of chest pain noted to have elevated troponin, EKG showed no acute ischemia Will admit to telemetry, placed on IV heparin drip, continue statins, beta-blockers, and aspirin. Check lipid profile, repeat troponin, cardiac diet Nitro glycerin + EKG with chest pain, Cardiology consultation Echocardiogram Pre diabetes Elevated blood sugars will check hemoglobin A1c place on insulin sliding scale, monitor blood sugar q.i.d. a.c. Full code DVT prophylaxis on IV heparin In my clinical judgment patient need 2 night inpatient stay for management of acute coronary syndrome on IV heparin drip, treatment cannot be given in less acute setting. Quality Stroke Does the patient have a stroke diagnosis?: No VTE Prior VTE?: No VTE Risk Level:: Medical - moderate - high VTE Device Contraindication: Treatment Not Indicated VTE Drug Contraindication: N/A - Med Ordered
[2023-09-17 17:51] VITALS: BP 128/86; PULSE 57; RESP 18; O2SAT 99
[2023-09-17 18:28] VITALS: BP 122/88; PULSE 52; RESP 18; O2SAT 99
--- NOTE | 2023-09-17 19:15 | PC.NURSE ---
Assumed care for pt. Pt aox4 eating at the bedside. No apparent distress noted. Reports no pain at this time. NSR on monitor with HR 65. Breaths are regular even and unlabored. No swelling noted. 12u/kg/hr of heparin running on the left AC. Pt tolerating well. Pending bed assignment. Pt aware of plan of care.
--- NOTE | 2023-09-17 20:17 | PC.NURSE ---
Critical lab received for Troponin 1953.7 Pt continues to be on a heparin drip going at 12u/kg/hr and the next PTT-HD to be drawn is at 0030. He is not reporting any chest pain and is currently sinus almaz on the monitor with HR 53. [place] text sent to Dr. Boss. No new orders at this time.
[2023-09-17 22:51] VITALS: BP 131/61; PULSE 78; RESP 20; TEMP 36.7; O2SAT 97
[2023-09-18] VITALS: BP 131/61; PULSE 78; RESP 20; TEMP 36.7
[2023-09-18 00:56] LABS: PTT Heparin Drip 71.7 SEC (53-77.9)
[2023-09-18 03:39] VITALS: BP 119/73; PULSE 52; RESP 20; TEMP 36.4; O2SAT 98
[2023-09-18 07:09] LABS: Hematocrit 47.6 % (42.0-52.0); Hemoglobin 15.2 g/dl (14.0-18.0); Mean Corpuscular HGB Conc 31.9 g/dl (31.0-36.0); Mean Corpuscular Volume 87.8 fL (80.0-98.0); Mean Platelet Volume 11.6 fL (9.4-12.4); Platelet Count 154 X10*3/uL (160-400); Red Blood Count 5.42 X10*6/uL (4.60-5.80); Red Cell Distribution Width 13.2 % (11.0-16.0); White Blood Count 6.6 X10*3/uL (4.8-10.8)
[2023-09-18 07:23] LABS: Anion Gap 11 (12-20); Blood Urea Nitrogen 23 mg/dL (9-16); Calcium 9.8 mg/dL (8.4-10.2); Carbon Dioxide 25 mmol/L (22-29); Chloride 105 mmol/L (96-108); Cholesterol 153 mg/dL (<200); Creatinine Clr Calc Pharmacy 73.6; Estimated Glomerular Filt Rate > 60; Glucose Random 135 mg/dL (60-115); HDL Cholesterol 39 mg/dL (>40); LDL Cholesterol Calculated 73 mg/dL (<100); Sodium 136 mmol/L (135-145); Triglycerides 209 mg/dL (<150)
[2023-09-18 07:25] LABS: Estimated Average Glucose 131 mg/dL; Hemoglobin A1c % 6.2 % (<6.0)
[2023-09-18 07:46] LABS: Glucose, Whole Blood 128 mg/dL (60-115)
[2023-09-18 07:50] VITALS: BP 118/78; PULSE 59; RESP 20; TEMP 36.1; O2SAT 96
--- NOTE | 2023-09-18 10:29 | MHC.CM.PN ---
IMM 09/18. Pt self-care, lives at home with his /HCP who will transport him at D/C. HCP copy requested. PCP: goes to [facility], does not know MD's name (will need to verify during normal business hours)
[2023-09-18 11:57] VITALS: BP 129/74; PULSE 67; RESP 18; TEMP 36.4; O2SAT 98
--- NOTE | 2023-09-18 12:05 | HO.PM.IMPN ---
Subjective Subjective Date of Service: 09/18/23 Interval History: Admitted for chest pain diagnosed to have acute coronary syndrome, patient remains chest pain-free since admission, denies chest pain, no shortness of breath, no palpitations, no lightheadedness, no dizziness, no diaphoresis. Review of Systems All other system reviewed and negative. Physical Exam Vital Signs: Vital Signs: Last Vital Signs Temp 97.5 F 09/18/23 11:57 Pulse 67 09/18/23 11:57 Resp 18 09/18/23 11:57 BP 129/74 09/18/23 11:57 Pulse Ox 98 09/18/23 11:57 O2 Del Method Room Air 09/18/23 11:57 BMI result Body Mass Index 24.8 Const: Other: General awake alert x3, in no acute distress. HEENT: Anicteric sclera Neck supple no JVD. CVS regular rate rhythm, Respiratory lungs clear to auscultation, no respiratory distress, no wheeze, no rhonchi. Gastrointestinal abdomen soft, non tender, bowel sounds audible, no guarding , no rigidity. Extremities no edema. Neuro non focal Skin no rash Psych appropriate affect Objective Data Active Medications Acetaminophen (Acetaminophen 325 Mg Tablet) 650 mg PO Q6H PRN PRN Reason: Pain, Mild (Pain Scale 1-3) Aspirin (Aspirin Enteric Coated 81 Mg Tablet.) 81 mg PO DAILY [facility] Last Admin: 09/18/23 09:48 Dose: 81 mg Documented By: TUAN Atorvastatin Calcium (Atorvastatin Calcium 80 Mg Tablet) 80 mg PO DAILY [facility] Last Admin: 09/18/23 09:48 Dose: 80 mg Documented By: TUAN Benzonatate (Benzonatate 100 Mg Capsule) 100 mg PO TID PRN PRN Reason: Cough Dextrose (Dextrose 50 % 25 Gm/50 Ml Syringe) 25 gm IVPUSH Q15M PRN; Protocol PRN Reason: per Hypoglycemia Standing Ord. Docusate Sodium (Docusate Sodium 100 Mg Capsule) 100 mg PO DAILY PRN PRN Reason: Constipation Glucose (Glucose Gel 15 Gm Gel..Gram.) 15 gm PO Q15M PRN; Protocol PRN Reason: per Hypoglycemia Standing Ord. Heparin Sodium (Porcine) (Heparin Sodium,Porcine 5,000 Unit/Ml Vial) 2,900 unit 40 unit/kg (2900 unit) IVPUSH PROTOCOL BOLUS PRN; Protocol PRN Reason: 40 unit/kg - Heparin Protocol Heparin Sodium (Porcine) (Heparin Sodium,Porcine 5,000 Unit/Ml Vial) 5,700 unit 80 unit/kg (5700 unit) IVPUSH PROTOCOL BOLUS PRN; Protocol PRN Reason: 80 unit/kg - Heparin Protocol Heparin Sodium/Sodium Chloride (Heparin Sodium,Porcine/1/2ns) 25,000 unit in 250 mls @ 0 mls/hr IVCONT .Q0M [facility]; Protocol Last Titration: 09/18/23 09:23 Dose: 12 units/kg/hr, 8.62 mls/hr Documented By: TUAN Co-signed By: GEOFF Insulin Human Lispro (Insulin Lispro 100 Unit/Ml 3 Ml Vial) 0 unit SUBCUT QIDACHS [facility]; Protocol Last Admin: 09/18/23 11:49 Dose: Not Given Documented By: TUAN Non-Admin Reason: No Insulin Coverage Lisinopril (Lisinopril 20 Mg Tablet) 20 mg PO DAILY [facility]; Protocol Last Admin: 09/18/23 09:48 Dose: 20 mg Documented By: TUAN Magnesium Hydroxide (Milk Of Magnesia 30 Ml Oral.Susp) 30 ml PO DAILY PRN PRN Reason: Constipation Metoprolol Succinate (Metoprolol Succinate Er 25 Mg Tab.Er.24h) 25 mg PO DAILY [facility]; Protocol Last Admin: 09/18/23 10:27 Dose: Not Given Documented By: TUAN Non-Admin Reason: Decreased Heart Rate Nitroglycerin (Nitroglycerin 0.4 Mg Tab.Subl) 0.4 mg SUBLINGUAL Q5MX3 PRN PRN Reason: chest pain Ondansetron HCl (Ondansetron Hcl 4 Mg/2 Ml Vial) 4 mg IVPUSH Q8H PRN PRN Reason: Nausea and Vomiting Sodium Chloride (0.9 % Sodium Chloride Flush 3 Ml Syringe) [facility] Admin: 09/18/23 09:52 Dose: Not Given Documented By: TUAN Non-Admin Reason: IV Running Labs 09/18/23 06:57 09/18/23 06:57 Labs: Laboratory Results - last 24 hr 09/17/23 09/17/23 09/17/23 12:58 16:52 21:49 MCV 88.1 MCH 28.6 MCHC 32.4 RDW 13.0 Plt Count 161 MPV 11.6 Immature Gran % (Auto) 0.2 Neut % (Auto) 67.2 Lymph % (Auto) 22.4 [place] % (Auto) 5.8 Eos % (Auto) 4.0 Baso % (Auto) 0.4 Lymph # (Auto) 1.2 [place] # (Auto) 0.3 Eos # (Auto) 0.2 Baso # (Auto) 0.0 Abs Immat Gran (auto) 0.01 Absolute Neuts (auto) 3.7 Absolute Nucleated RBC 0.000 Nucleated RBC % (auto) 0.0 PT 9.7 L INR 0.8 L aPTT Heparin Protocol 33.0 L Anion Gap 13 Estim Creat Clear Calc 55.4 Estimated GFR 55 POC Glucose 135 H Random Glucose 190 H Estimat Average Glucose Hemoglobin A1c % Calcium 10.2 Magnesium 1.9 Total Bilirubin 0.5 Direct Bilirubin 0.1 AST 26 ALT 32 Alkaline Phosphatase 106 Total Protein 8.3 H Albumin 4.6 Triglycerides Cholesterol LDL Cholesterol, Calc HDL Cholesterol 09/17/23 09/18/23 09/18/23 22:57 00:34 06:57 MCV 87.8 MCH 28.0 MCHC 31.9 RDW 13.2 Plt Count 154 L MPV 11.6 Immature Gran % (Auto) Neut % (Auto) Lymph % (Auto) [place] % (Auto) Eos % (Auto) Baso % (Auto) Lymph # (Auto) [place] # (Auto) Eos # (Auto) Baso # (Auto) Abs Immat Gran (auto) Absolute Neuts (auto) Absolute Nucleated RBC 0.000 Nucleated RBC % (auto) 0.0 PT Cancelled INR aPTT Heparin Protocol 71.7 D Anion Gap Estim Creat Clear Calc Estimated GFR POC Glucose 129 H Random Glucose Estimat Average Glucose Hemoglobin A1c % Calcium Magnesium Total Bilirubin Direct Bilirubin AST ALT Alkaline Phosphatase Total Protein Albumin Triglycerides Cholesterol LDL Cholesterol, Calc HDL Cholesterol 09/18/23 09/18/23 09/18/23 06:57 06:57 07:23 MCV MCH MCHC RDW Plt Count MPV Immature Gran % (Auto) Neut % (Auto) Lymph % (Auto) [place] % (Auto) Eos % (Auto) Baso % (Auto) Lymph # (Auto) [place] # (Auto) Eos # (Auto) Baso # (Auto) Abs Immat Gran (auto) Absolute Neuts (auto) Absolute Nucleated RBC Nucleated RBC % (auto) PT 10.8 L INR Cancelled 0.9 aPTT Heparin Protocol 67.0 Anion Gap 11 L Estim Creat Clear Calc 73.6 Estimated GFR > 60 POC Glucose 128 H Random Glucose 135 H Estimat Average Glucose 131 Hemoglobin A1c % 6.2 H Calcium 9.8 Magnesium Total Bilirubin Direct Bilirubin AST ALT Alkaline Phosphatase Total Protein Albumin Triglycerides 209 H Cholesterol 153 LDL Cholesterol, Calc 73 HDL Cholesterol 39 L 09/18/23 11:20 MCV MCH MCHC RDW Plt Count MPV Immature Gran % (Auto) Neut % (Auto) Lymph % (Auto) [place] % (Auto) Eos % (Auto) Baso % (Auto) Lymph # (Auto) [place] # (Auto) Eos # (Auto) Baso # (Auto) Abs Immat Gran (auto) Absolute Neuts (auto) Absolute Nucleated RBC Nucleated RBC % (auto) PT INR aPTT Heparin Protocol Anion Gap Estim Creat Clear Calc Estimated GFR POC Glucose 110 Random Glucose Estimat Average Glucose Hemoglobin A1c % Calcium Magnesium Total Bilirubin Direct Bilirubin AST ALT Alkaline Phosphatase Total Protein Albumin Triglycerides Cholesterol LDL Cholesterol, Calc HDL Cholesterol Assessment and Plan (1) Acute coronary syndrome: Status: Acute Plan 57-year-old gentleman with past medical history significant for pre diabetes and coronary artery disease status post 3 stent placement presented to [facility] with recurrent episodes of chest pain lasting less than 30 minutes, patient noted to have elevated troponin Acute coronary syndrome No chest pain , no shortness of breath elevated troponin trending up , EKG showed no acute ischemia cont IV heparin drip, continue statins, beta-blockers, and aspirin. LDL 73 Nitro glycerin + EKG with chest pain, Seen by associate director of nursing case d/w Dr. Castillo he recommend [facility] tomorrow for cardiac catheterization Pre diabetes Elevated blood sugars , hemoglobin A1c 6.2, blood sugar less than 150, recommend diabetic diet Full code DVT prophylaxis on IV heparin In my clinical judgment patient need 2 night inpatient stay for management of acute coronary syndrome on IV heparin drip, treatment cannot be given in less acute setting. Quality Stroke Does the patient have a stroke diagnosis?: No VTE Prior VTE?: No VTE Risk Level:: Medical - moderate - high VTE Device Contraindication: Treatment Not Indicated VTE Drug Contraindication: N/A - Med Ordered
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
[2023-09-18 16:00] VITALS: BP 117/73; PULSE 75; RESP 20; TEMP 36.4; O2SAT 98
[2023-09-18 16:26] LABS: Glucose, Whole Blood 146 mg/dL (60-115)
[2023-09-18 19:02] VITALS: BP 110/73; PULSE 65; RESP 20; TEMP 36.4; O2SAT 100
[2023-09-18 20:09] LABS: Glucose, Whole Blood 133 mg/dL (60-115)
[2023-09-19] VITALS: BP 104/65; PULSE 58; RESP 20; TEMP 37.2; O2SAT 98
[2023-09-19 03:13] VITALS: BP 102/69; PULSE 61; RESP 20; TEMP 36.6; O2SAT 96
[2023-09-19 07:10] LABS: PTT Heparin Drip 63.1 SEC (53-77.9)
[2023-09-19 07:54] LABS: Glucose, Whole Blood 134 mg/dL (60-115)
[2023-09-19 08:00] VITALS: BP 115/74; PULSE 75; RESP 16; TEMP 36.4; O2SAT 98
--- NOTE | 2023-09-19 09:21 | PM.PNCARD ---
Subjective Subjective Date of Service: 09/19/23 Principal diagnosis: NSTEMI Interval history: Patient no longer having any chest pain. No repeat troponins are done. Peak troponins at 2.7 no follow-up. Patient denies any other complaints. Currently on IV heparin drip. Review of Systems Review of Systems Yes all other systems are reviewed and are negative Constitutional: Reports no additional constitutional complaints Cardiovascular: Reports no additional cardiovascular complaints Respiratory: Reports no additional respiratory complaints Reports system reviewed and no additional complaints, except as documented Physical Exam Vital Signs: Last Vital Signs Temp 97.6 F 09/19/23 08:00 Pulse 75 09/19/23 08:00 Resp 16 09/19/23 08:00 BP 115/74 09/19/23 08:00 Pulse Ox 98 09/19/23 08:00 O2 Del Method Room Air 09/19/23 08:00 BMI result Body Mass Index 24.8 GENERAL APPEARANCE: in no acute distress, pleasant. NECK: no carotid bruit, no jugular venous distention. SKIN: no suspicious lesions, warm and dry. HEART: no murmurs, regular rate and rhythm. LUNGS: clear to auscultation bilaterally. ABDOMEN: soft, nontender. EXTREMITIES: no edema. PERIPHERAL PULSES: equal. NEUROLOGIC: No gross deficits, AAO X 3 Objective Labs and Meds 09/18/23 06:57 09/18/23 06:57 Lab results: Laboratory Results - last 24 hr 09/18/23 09/18/23 09/18/23 11:20 16:13 19:57 aPTT Heparin Protocol POC Glucose 110 146 H 133 H 09/19/23 09/19/23 06:21 07:50 aPTT Heparin Protocol 63.1 POC Glucose 134 H Progress Note: A&P Assessment and plan (1) Acute coronary syndrome: Status: Acute Assessment and Plan: Patient present with symptoms and troponin consistent with acute coronary syndrome with high risk features with prior drug-eluting stent to the RCA territory. Patient currently chest pain-free. Currently appropriately treated. Continue aspirin IV heparin. Continue high-intensity statin therapy. Heart rate is stable at this point time. Continue current metoprolol therapy. Blood pressure is also stable. Arrangement means for cardiac catheterization at [facility]. Risks, benefits, alternatives of cardiac catheterization were discussed with the patient. Thank you for allowing us to partake in his care Time Spent With Patient Time: Total time managing care of this patient today ____ minutes. Progress Note: Quality Stroke Does the patient have a stroke diagnosis?: No Procedures Date of Service Date of Service: 09/19/23
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
--- NOTE | 2023-09-19 09:46 | MHC.CM.PN ---
Pt being transferred today to [facility].
[2023-09-19 10:48] LABS: Glucose, Whole Blood 138 mg/dL (60-115)
--- NOTE | 2023-09-19 11:13 | PM.EVENT ---
Event Note Date of Service: 09/19/23 Event Note: Patient is a 57 Y M with CAD, c/b prior myocardial infarction, s/p stent placement, presenting on 09/17 w/ chest pain, found to have NSTEMI, started on heparin gtt, plan for transfer to [facility] for cardiac catheterisation; on 09/19 11:00, patient developed chest pain, ultimately improved w/ nitro sublingual and paste; ICU consulted for possible admission for nitro gtt; upon evaluation, patient reports improvement of chest pain; patient in no acute distress, alert, oriented, appropriate, vital signs within normal; discussed plan to continue with transfer to [facility], floor; if patient re-develops chest pain and necessitates nitro gtt, or with any other concerning signs or symptoms, ICU ready to admit Time Spent With Patient Time: Total time managing care of this patient today ____ minutes.
--- NOTE | 2023-09-19 11:21 | PM.EVENT ---
Event Note Date of Service: 09/19/23 Event Note: Patient developed acute precordial chest discomfort similar to his presenting pain. As per protocol EKG was done which showed no ischemia. Patient given 2 sublingual nitroglycerin and dropped his systolic blood pressure in the 70s and got lightheaded. Patient was laid in Trendelenburg position and blood pressure improved but rapid response was called for getting more nursing help. Patient's discomfort then improved to 4/10 from 10/10 with the 2 mg of morphine. Blood pressure is remained stable. Plan was to hasten transferred to [facility] to PCU CCU. I spoke with Dr. Pedraza at [facility], CCU attending, however by the time patient's chest discomfort had resolved. We decided to start him on IV nitroglycerin but patient's chest pain had resolved. Will start him on nitropaste 1 in for now. Continue rapid bolus of IV normal saline. Patient advised to call with any recurrent chest discomfort which may require IV nitro and transferred to ICU for nursing support. Time Spent With Patient Time: Total time managing care of this patient today ____ minutes.
[2023-09-19 12:00] VITALS: BP 114/72; PULSE 70; RESP 14; TEMP 36.2; O2SAT 98
== END 2023-09-19 15:03 | disposition short-term general hospital (02) | DRG 282 ==
LOC: HO.ED 16:56 → HO.EDOVER 17:51 → HO.IMC 21:30
PROVIDERS: Nurse Practitioner Family; Physician Assistant; Admitting Provider Hospitalist; Emergency Provider Emergency Medicine; Visit Provider Hospitalist
DX: I21.4 Non-ST elevation (NSTEMI) myocardial infarction (principal); I25.10 Atherosclerotic heart disease of native coronary artery without angina pectoris; R73.03 Prediabetes; Z95.5 Presence of coronary angioplasty implant and graft; Z79.82 Long term (current) use of aspirin; Z79.899 Other long term (current) drug therapy
CPT/HCPCS: 36415; 71046; 80048; 80061; 80076; 82947; 83036; 83735; 84484; 85025; 85027; 85610; 85730; 93005; 99285; J1644; J2270

== ENCOUNTER 2023-09-17 17:42 | Outpatient (BNV) | payer MEDICARE, MEDICAID, SELFPAY | END 2023-09-19 10:25 | PROVIDERS: Admitting Provider Hospitalist; Emergency Provider Emergency Medicine; Visit Provider Internal Medicine Cardiovascular Disease | DX: R07.89 Other chest pain (principal) | CPT/HCPCS: 93010 ==

== ENCOUNTER → 2023-09-17 17:42 | Outpatient (BNV) | payer MEDICARE, MEDICAID, SELFPAY | PROVIDERS: Admitting Provider Hospitalist; Emergency Provider Emergency Medicine; Visit Provider Internal Medicine Cardiovascular Disease | DX: I24.9 Acute ischemic heart disease, unspecified (principal); R00.1 Bradycardia, unspecified; R94.31 Abnormal electrocardiogram [ECG] [EKG] | CPT/HCPCS: 93010; 99222; 99233; 99499 ==

== ENCOUNTER → 2023-09-17 17:42 | Outpatient (BNV) | payer MEDICARE, MEDICAID, SELFPAY | PROVIDERS: Admitting Provider Hospitalist; Emergency Provider Emergency Medicine; Visit Provider Hospitalist | DX: I24.9 Acute ischemic heart disease, unspecified (principal) | CPT/HCPCS: 99223; 99233; 99239 ==

== ENCOUNTER 2024-02-23 07:21 | Outpatient (REF) | payer MEDICARE, MEDICAID, SELFPAY ==
[2024-02-23 07:34] LABS: MANUAL DIFF FLAG NO
[2024-02-23 08:04] LABS: Alanine Aminotransferase 22 U/L (0-40); Albumin Level 4.3 g/dL (3.5-5.0); Alkaline Phosphatase 90 U/L (39-117); Anion Gap 13 (12-20); Aspartate Amino Transferase 22 U/L (5-37); Bilirubin Total 0.4 mg/dL (0.0-1.0); Blood Urea Nitrogen 24 mg/dL (9-16); Calcium 9.9 mg/dL (8.4-10.2); Carbon Dioxide 23 mmol/L (22-29); Chloride 108 mmol/L (96-108); Cholesterol 176 mg/dL (<200); Estimated Glomerular Filt Rate > 60; Glucose Random 132 mg/dL (60-115); HDL Cholesterol 31 mg/dL (>40); Potassium 4.7 mmol/L (3.3-5.1); Sodium 139 mmol/L (135-145); Total Protein 7.4 g/dL (6.5-8.0); Triglycerides 442 mg/dL (<150)
[2024-02-23 08:06] LABS: Basophils Percent Auto 0.5 % (0-2); Eosinophils Absolute Auto 0.5 X10*3/uL (0.0-0.4); Eosinophils Percent Auto 8.2 % (0-4); Hematocrit 46.4 % (42.0-52.0); Hemoglobin 14.9 g/dl (14.0-18.0); Imm Gran Abs Auto 0.02 X10*3/uL (0.00-0.03); Imm Gran Pct Auto 0.4 % (0.0-0.4); Lymphocytes Absolute Auto 1.7 X10*3/uL (1.2-4.9); Mean Corpuscular HGB Conc 32.1 g/dl (31.0-36.0); Mean Corpuscular Hemoglobin 28.9 pg (27.0-33.0); Mean Corpuscular Volume 89.9 fL (80.0-98.0); Mean Platelet Volume 11.7 fL (9.4-12.4); Monocytes Absolute Auto 0.4 X10*3/uL (0.1-1.2); Monocytes Percent Auto 7.8 % (2-11); Neutrophils Absolute Auto 2.9 x10*3/uL (2.0-8.3); Neutrophils Percent Auto 52.1 % (45-73); Red Blood Count 5.16 X10*6/uL (4.60-5.80); Red Cell Distribution Width 13.1 % (11.0-16.0); White Blood Count 5.5 X10*3/uL (4.8-10.8)
[2024-02-23 09:04] LABS: Creatinine Urine 134.92 mg/dL; Microalbum/Creatinine Ratio Ur 37.8 ug/mg cr (<30)
[2024-02-24 11:52] LABS: Platelet Count 136 X10*3/uL (160-400)
== END 2024-02-23 07:22 | disposition home or self-care (01) ==
LOC: HO.LAB 07:21
PROVIDERS: PCP Internal Medicine Geriatric Medicine; Visit Provider Internal Medicine Geriatric Medicine
DX: E11.59 Type 2 diabetes mellitus with other circulatory complications (principal); I21.4 Non-ST elevation (NSTEMI) myocardial infarction; I25.10 Atherosclerotic heart disease of native coronary artery without angina pectoris; D69.6 Thrombocytopenia, unspecified; Z98.61 Coronary angioplasty status; Z79.899 Other long term (current) drug therapy
CPT/HCPCS: 36415; 80053; 80061; 82043; 82570; 85025

== ENCOUNTER 2024-04-12 06:09 | Outpatient (REF) | payer MEDICARE, MEDICAID, SELFPAY ==
[2024-04-12 06:18] LABS: MANUAL DIFF FLAG NO
[2024-04-12 07:27] LABS: Basophils Percent Auto 0.3 % (0-2); Eosinophils Absolute Auto 0.3 X10*3/uL (0.0-0.4); Eosinophils Percent Auto 3.3 % (0-4); Hematocrit 47.1 % (42.0-52.0); Hemoglobin 15.2 g/dl (14.0-18.0); Imm Gran Abs Auto 0.03 X10*3/uL (0.00-0.03); Imm Gran Pct Auto 0.4 % (0.0-0.4); Lymphocytes Absolute Auto 1.5 X10*3/uL (1.2-4.9); Lymphocytes Percent Auto 20.6 % (20-40); Mean Corpuscular HGB Conc 32.3 g/dl (31.0-36.0); Mean Corpuscular Volume 89.7 fL (80.0-98.0); Mean Platelet Volume 11.9 fL (9.4-12.4); Monocytes Absolute Auto 0.6 X10*3/uL (0.1-1.2); Monocytes Percent Auto 7.6 % (2-11); Neutrophils Absolute Auto 5.1 x10*3/uL (2.0-8.3); Neutrophils Percent Auto 67.8 % (45-73); Platelet Count 162 X10*3/uL (160-400); Red Blood Count 5.25 X10*6/uL (4.60-5.80); Red Cell Distribution Width 13.5 % (11.0-16.0); White Blood Count 7.5 X10*3/uL (4.8-10.8)
[2024-04-12 07:41] LABS: Cholesterol 120 mg/dL (<200); HDL Cholesterol 39 mg/dL (>40); LDL Cholesterol Calculated 39 mg/dL (<100); Triglycerides 213 mg/dL (<150)
[2024-04-12 07:57] LABS: TSH reflex Free T4 2.15 uIU/mL (0.32-4.0)
== END 2024-04-12 06:10 | disposition home or self-care (01) ==
LOC: HO.LAB 06:09
PROVIDERS: PCP Internal Medicine Geriatric Medicine; Visit Provider Internal Medicine Geriatric Medicine
DX: D69.6 Thrombocytopenia, unspecified (principal); E78.1 Pure hyperglyceridemia
CPT/HCPCS: 36415; 80061; 84443; 85025

== ENCOUNTER 2024-04-25 12:52 | Emergency (ER) | payer OTHER, MEDICARE, MEDICAID, SELFPAY ==
--- NOTE | ~2024-04-25 | CT_ITS ---
EXAMINATION: CT HEAD W/O IV CONTRAST CT CERVICAL SPINE W/O IV CONTRAST CLINICAL INFORMATION: Head injury, pain. COMPARISON: None TECHNIQUE: Head - Contiguous axial imaging of the head was performed from the skull base to the vertex without the administration of intravenous contrast, and axial images are reconstructed at 2 mm and 5 mm slice thickness. Cervical spine - A volumetric, helical CT acquisition of the cervical spine was obtained without contrast; in addition to the standard set of axial images, multiplanar reformatted images were provided in the coronal and sagittal imaging planes. This CT examination was performed using dose optimization techniques as appropriate, variously including the following: *Automated exposure control *Adjustment of mA and/or kV according to patient size (this includes techniques or standardized protocols for targeted exams where dose is matched to indication/reason for exam; i.e. extremities or head) *Use of iterative reconstruction technique DLP: 1005 mGy-cm FINDINGS: HEAD: No acute intracranial findings. Mcfarlane to white matter differentiation is preserved. No evidence of intracranial hemorrhage, major vascular territory infarction, focal mass effect or midline shift. There appears to be an old small lacunar infarct in the region of the left caudate head. The ventricles have normal size and configuration. No hydrocephalus or extra-axial fluid collections. The calvarium is intact. There are frothy secretions within a right posterior ethmoid air cell and mucosal thickening of several bilateral ethmoid air cells. Also, mucus is seen at inferior aspect of each maxillary antrum as well as at posterior sphenoid sinus. No air-fluid levels within paranasal sinuses. The mastoid air cells are well aerated. The temporomandibular joints are intact. The orbits and globes are unremarkable. CERVICAL SPINE: The craniocervical junction is intact. There is degenerative osseous spurring at the anterior atlantodental articulation. The vertebral body heights are maintained. No fractures in the anterior or posterior elements. No prevertebral soft tissue edema or soft tissue hematoma. There is severe left-sided facet arthropathy (with osteophytes and prominent subchondral cystic changes) at C3-C4 and minimal degenerative anterolisthesis of C3 on C4. A small posterior disc osteophyte complex is noted at C3-C4 without significant narrowing of the central spinal canal. Mild discovertebral degenerative changes are observed at the levels. At C6-C7, there is moderate loss of disc height, traction osteophyte formation, uncovertebral joint hypertrophy and moderate bilateral neural foraminal stenosis (left worse than right). Mild spinal canal stenosis is caused by the posterior disc-osteophyte complex at C6-C7. Thyroid gland is unremarkable. The visualized lung apices are clear. No pneumothorax. CT/CT cervical spine wo IV con IMPRESSION: * No intracranial hemorrhage or other acute intracranial pathology. * No fracture or traumatic subluxation in the degenerated cervical spine. Within the cervical spine, facet osteoarthritis is severe on the left at C3-C4 and there is minimal degenerative anterolisthesis of C3 on C4. * The disc degenerative change is worst at the C6-C7 level.
[2024-04-25 13:15] VITALS: BP 123/79; PULSE 67; RESP 16; TEMP 37; O2SAT 100; BMI 23.8
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
[2024-04-25 15:07] VITALS: BP 123/79; PULSE 67; RESP 16; TEMP 37; O2SAT 100
== END 2024-04-25 15:08 | disposition home or self-care (01) ==
PROVIDERS: Emergency Provider Emergency Medicine; PCP Internal Medicine Geriatric Medicine
DX: S16.1XXA Strain of muscle, fascia and tendon at neck level, initial encounter (principal); M54.2 Cervicalgia; R51.9 Headache, unspecified; V43.52XA Car driver injured in collision with other type car in traffic accident, initial encounter; Y93.89 Activity, other specified; Y92.488 Other paved roadways as the place of occurrence of the external cause; Y99.8 Other external cause status
CPT/HCPCS: 70450; 72125; 99282; 99284